=== PATIENT | female | born 1945 | race Caucasian/White ===

== ENCOUNTER 2018-03-19 09:00 | Outpatient (RCR) | payer MEDICARE, OTHER, SELFPAY ==
--- NOTE | 2018-02-01 16:19 | PT.OIE ---
Current Diagnoses Other peripheral vertigo, left ear (02/01/18) Dizziness and giddiness (02/01/18) Past Medical History (Last Updated 02/01/18 @ 15:44 by Latrice Jose, PT) After cataract, bilateral (Acute) Hypothyroid (Acute) Provider Visit Care Team Role Provider Type Forrest Macdonald MD Family Provider Physician Primary Care Provider Specialty: Family Practice Address: [address] [place] [address], [id number] Email: [email or web address] Bobby Payton MD Attending Provider Physician Specialty: Ear, Nose, Throat Address: [address] [place] [address], [id number] Email: Physical Therapy Initial Evaluation PT-OP-A Visit Information Start: 02/01/18 10:29 Freq: Status: Active Protocol: Document 02/01/18 10:30 AMB (Rec: 02/01/18 14:31 AMB [email or web address]) Out-Patient Physical Therapy Visit Information Visit Information Visit Type Initial Evaluation Visit Start Time 10:30 Visit Stop Time 11:20 Total Visit Minutes 50 Visit Number 1 Evaluation Information Evaluation Date 02/01/18 PT-OP-B Current Condition Start: 02/01/18 10:29 Freq: Status: Active Protocol: Document 02/01/18 10:30 AMB (Rec: 02/01/18 14:31 AMB [email or web address]) Current Condition History of Current Condition Onset Date December 2017 Current Complaints Dizziness History of Current Condition The patient reports she first noticed dizziness around 2016, but it went away on its own. Around it came back and has maintained. She thinks she is learning how to move without bringing on the worst of the symptoms, but they are still there if when she comes up from washing her hair in the sink, sits up in bed, or turns quickly in the kitchen. Prior Treatments and Tests MRI of brain: clear on 01/04/18 . VNG 01/25/18: L peripheral weakness. Prior Functional Status Baseline Function- ADL's Independent Baseline Function- Mobility Independent Current Functional Impairments (Reported) Functional Limitations- ADL's Limited with showering because of dizziness, bed mobility. Functional Limitations- Recreation/ Limited in gardening Hobbies Personal Factors Other Personal Factors That May Effect Pt taking amitriptyline and Therapy/Recovery concerned that it could be causing dizziness PT-OP-C Subjective Start: 02/01/18 10:29 Freq: Status: Active Protocol: Document 02/01/18 10:30 AMB (Rec: 02/01/18 14:31 AMB [email or web address]) OP-PT Subjective Patient Comments Patient Comments Pt states the dizziness is present constantly. When sitting currently without moving she rates it at a 2-3/ 10. It is worse with positional changes and head movements. Patient Questionnaires ABC- Activity Specific Balance Confidence Scale ABC Score 47 ABC Functional Impairment 40 to <60% Impaired (Score 41- 60) Dizziness Handicap Inventory DHI Score 34 DHI Functional Impairment 20 to 39% Impaired (Score 20- 39) PT-OP-D Balance Start: 02/01/18 10:29 Freq: Status: Active Protocol: Document 02/01/18 10:30 AMB (Rec: 02/01/18 16:15 AMB [email or web address]) Balance Tests Single Limb Standing Single Limb- Right 10 sec Single Limb- Left 5 sec Semi-Tandem Standing Semi-Tandem Standing Balance EO WFL, EC falls; HT falls PT-OP-G Mobility & Gait Start: 02/01/18 10:29 Freq: Status: Active Protocol: Document 02/01/18 10:30 AMB (Rec: 02/01/18 16:19 AMB [email or web address]) OP Gait Assessment Gait Gait Assistance Required: Independent Comments Gait Comments Pt ambulates without assistive device but admits that she furniture walks occassionally. PT-OP-O Vestibular Start: 02/01/18 10:29 Freq: Status: Active Protocol: Document 02/01/18 10:30 AMB (Rec: 02/01/18 16:09 AMB [email or web address]) Vestibular Assessment Visual Testing Smooth Pursuits Horizontal WFL Saccades Horizontal WFL Thrust Head sx increas Convergence Test 6 DVA (Line Degradation) 3 Head Shake sx increas Spontaneous Nystagmus Negative Vestibulo-Ocular Reflex (VOR1) Positive Positional Testing Hammad-Hallpike Negative Left Negative Right Rolling Test Negative Left Negative Right Comments Vestibular Comments Pt without nystagmus but had subjective feeling of dropping/rolling after sitting up from Hammad-Hallpike. PT-OP-Q Treatments Start: 02/01/18 10:29 Freq: Status: Active Protocol: Document 02/01/18 10:30 AMB (Rec: 02/01/18 16:18 AMB [email or web address]) Neuro Re-Education Treatment Balance Activities 1 Details Corner balance Comments EO.EC Other Activities 1 Details VOR1 Comments WBOS PT-OP-T Assessment and Plan Start: 02/01/18 10:29 Freq: Status: Active Protocol: Document 02/01/18 10:30 AMB (Rec: 02/01/18 16:02 AMB [email or web address]) Physical Therapy Assessment Rehab Potential Rehabilitation Potential Good Evaluation Complexity Number of Personal Factors/Comorbidities 1-2 Number of Body Systems Impaired 3 Clinical Presentation at Evaluation Stable Impairments Impairments Activity Tolerance Balance Vestibular Goals 2 Impairment Balance Short Term Goal (STG) The patient will stand on one foot for 15 seconds with eyes open to show decreased fall risk. STG Duration 4 weeks Skilled Nursing Goal (LTG) The patient will stand with NBOS and perform head turns without LOB. LTG Duration 8 weeks 1 Impairment Positional changes Short Term Goal (STG) The patient will move from supine to sit without dizziness. STG Duration 4 weeks Manager Study Goal (LTG) The patient will stand up from washing her hair in the sink without dizziness. LTG Duration 8 weeks Assessment Summary Assessment The patient presents with recent onset dizziness with negative MRI and VNG positive for L sided weakness. No nystagmus with positional testing, but dizziness when coming up from positions. Poor static balance especially with eyes closed or head turns. She will benefit from PT for vestibular rehabilitation to reduce her baseline dizziness and improve her movement tolerance. Physical Therapy Plan Frequency and Duration Frequency of Treatment 1x/Week Duration of Treatment 8 weeks Plan of Care Start Date 02/01/18 Plan of Care End Date 03/29/18 Therapeutic Interventions Therapeutic Interventions Balance Training Gait Training Home Exercise Program Neuromuscular Re-education Self-Care/Home Management Therapeutic Activities Therapeutic Exercises Vestibular Rehabilitation Provider Signature Date
--- NOTE | 2018-02-01 16:20 | PT.OPPOC ---
Current Diagnoses Other peripheral vertigo, left ear (02/01/18) Dizziness and giddiness (02/01/18) Provider Visit Care Team Role Provider Type Forrest Macdonald MD Family Provider Physician Primary Care Provider Specialty: Family Practice Address: [address] [place] [address], [id number] Email: [email or web address] Bobby Payton MD Attending Provider Physician Specialty: Ear, Nose, Throat Address: [address] [place] [address], [id number] Email: Plan Of Care PT-OP-T Assessment and Plan Start: 02/01/18 10:29 Freq: Status: Active Protocol: Document 02/01/18 10:30 AMB (Rec: 02/01/18 16:02 AMB [email or web address]) Physical Therapy Assessment Rehab Potential Rehabilitation Potential Good Evaluation Complexity Number of Personal Factors/Comorbidities 1-2 Number of Body Systems Impaired 3 Clinical Presentation at Evaluation Stable Impairments Impairments Activity Tolerance Balance Vestibular Goals 2 Impairment Balance Short Term Goal (STG) The patient will stand on one foot for 15 seconds with eyes open to show decreased fall risk. STG Duration 4 weeks Fpc Goal (LTG) The patient will stand with NBOS and perform head turns without LOB. LTG Duration 8 weeks 1 Impairment Positional changes Short Term Goal (STG) The patient will move from supine to sit without dizziness. STG Duration 4 weeks Valve Inserter Goal (LTG) The patient will stand up from washing her hair in the sink without dizziness. LTG Duration 8 weeks Assessment Summary Assessment The patient presents with recent onset dizziness with negative MRI and VNG positive for L sided weakness. No nystagmus with positional testing, but dizziness when coming up from positions. Poor static balance especially with eyes closed or head turns. She will benefit from PT for vestibular rehabilitation to reduce her baseline dizziness and improve her movement tolerance. Physical Therapy Plan Frequency and Duration Frequency of Treatment 1x/Week Duration of Treatment 8 weeks Plan of Care Start Date 02/01/18 Plan of Care End Date 03/29/18 Therapeutic Interventions Therapeutic Interventions Balance Training Gait Training Home Exercise Program Neuromuscular Re-education Self-Care/Home Management Therapeutic Activities Therapeutic Exercises Vestibular Rehabilitation Plan of Care Dates Plan of Care Start Date 02/01/18 Plan of Care End Date 03/29/18 Please Sign and Return: I have reviewed this Plan of Care and certify that the skilled therapy services above are required to meet the patient???s needs. Physician Signature Date Printed Name and Credentials
--- NOTE | 2018-02-05 09:27 | PT.OTN ---
Current Diagnoses Other peripheral vertigo, left ear (02/04/18) Dizziness and giddiness (02/04/18) Physical Therapy Treatment Note PT-OP-A Visit Information Start: 02/01/18 10:29 Freq: Status: Active Protocol: Document 02/04/18 13:00 AMB (Rec: 02/04/18 13:01 AMB [email or web address]) Out-Patient Physical Therapy Visit Information Visit Information Visit Type Treatment Note Visit Start Time 10:30 Visit Stop Time 11:15 Total Visit Minutes 45 Visit Number 2 Evaluation Information Evaluation Date 02/01/18 PT-OP-B Current Condition Start: 02/01/18 10:29 Freq: Status: Active Protocol: Document 02/01/18 10:30 AMB (Rec: 02/01/18 14:31 AMB [email or web address]) Current Condition History of Current Condition Onset Date December 2017 Current Complaints Dizziness History of Current Condition The patient reports she first noticed dizziness around 2016, but it went away on its own. Around it came back and has maintained. She thinks she is learning how to move without bringing on the worst of the symptoms, but they are still there if when she comes up from washing her hair in the sink, sits up in bed, or turns quickly in the kitchen. Prior Treatments and Tests MRI of brain: clear on 01/04/18 . VNG 01/25/18: L peripheral weakness. Prior Functional Status Baseline Function- ADL's Independent Baseline Function- Mobility Independent Current Functional Impairments (Reported) Functional Limitations- ADL's Limited with showering because of dizziness, bed mobility. Functional Limitations- Recreation/ Limited in gardening Hobbies Personal Factors Other Personal Factors That May Effect Pt taking amitriptyline and Therapy/Recovery concerned that it could be causing dizziness PT-OP-C Subjective Start: 02/01/18 10:29 Freq: Status: Active Protocol: Document 02/04/18 10:30 AMB (Rec: 02/05/18 07:30 AMB [email or web address]) OP-PT Subjective Patient Comments Patient Comments The patient states she has been doing her exercises 1x/ day, it was making her quite dizzy. Doing them at 9pm, and then dizzy until she went to bed at 10pm. PT-OP-D Balance Start: 02/01/18 10:29 Freq: Status: Active Protocol: Document 02/01/18 10:30 AMB (Rec: 02/01/18 16:15 AMB [email or web address]) Balance Tests Single Limb Standing Single Limb- Right 10 sec Single Limb- Left 5 sec Semi-Tandem Standing Semi-Tandem Standing Balance EO WFL, EC falls; HT falls PT-OP-G Mobility & Gait Start: 02/01/18 10:29 Freq: Status: Active Protocol: Document 02/01/18 10:30 AMB (Rec: 02/01/18 16:19 AMB [email or web address]) OP Gait Assessment Gait Gait Assistance Required: Independent Comments Gait Comments Pt ambulates without assistive device but admits that she furniture walks occasionally. PT-OP-O Vestibular Start: 02/01/18 10:29 Freq: Status: Active Protocol: Document 02/01/18 10:30 AMB (Rec: 02/01/18 16:09 AMB [email or web address]) Vestibular Assessment Visual Testing Smooth Pursuits Horizontal WFL Saccades Horizontal WFL Thrust Head sx increas Convergence Test 6 DVA (Line Degradation) 3 Head Shake sx increas Spontaneous Nystagmus Negative Vestibulo-Ocular Reflex (VOR1) Positive Positional Testing Laurel-Hallpike Negative Left Negative Right Rolling Test Negative Left Negative Right Comments Vestibular Comments Pt without nystagmus but had subjective feeling of dropping/rolling after sitting up from Laurel-Hallpike. PT-OP-Q Treatments Start: 02/01/18 10:29 Freq: Status: Active Protocol: Document 02/04/18 10:30 AMB (Rec: 02/05/18 09:26 AMB [email or web address]) Neuro Re-Education Treatment Balance Activities 2 Details Foam balance Surface blue foam Comments stride stance 1 Details Corner balance Comments EO.EC Movement Re-Education Movement Re-education Activities Ayers-Daroff x 2 (wait until dizziness subsides before coming back up to retrain brain) Other Activities 1 Details VOR1 Comments WBOS, added challenging background PT-OP-T Assessment and Plan Start: 02/01/18 10:29 Freq: Status: Active Protocol: Document 02/04/18 10:30 AMB (Rec: 02/05/18 09:26 AMB [email or web address]) Physical Therapy Assessment Assessment Summary Assessment Encouraged pt to try exercises 2x/day, but less intensity so that she isn't dizzy for an hour after her exercises. Physical Therapy Plan Frequency and Duration Frequency of Treatment 1x/Week Duration of Treatment 8 weeks Plan of Care Start Date 02/01/18 Plan of Care End Date 03/29/18 Next Visit Focus/Plan Next Visit Plan Follow up on tolerance to exercises. Walking with head turns. Please Sign and Return: I have reviewed this Plan of Care and certify that the skilled therapy services above are required to meet the patient???s needs. Physician Signature Date Printed Name and Credentials Clinical Instructor Signature Printed Name and Credentials
--- NOTE | 2018-02-13 10:52 | PT.OTN ---
Current Diagnoses Other peripheral vertigo, left ear (02/13/18) Dizziness and giddiness (02/13/18) Physical Therapy Treatment Note PT-OP-A Visit Information Start: 02/01/18 10:29 Freq: Status: Active Protocol: Document 02/13/18 08:45 AMB (Rec: 02/13/18 10:33 AMB [email or web address]) Out-Patient Physical Therapy Visit Information Visit Information Visit Type Treatment Note Visit Start Time 08:50 Visit Stop Time 09:30 Total Visit Minutes 45 Visit Number 3 Evaluation Information Evaluation Date 02/01/18 PT-OP-B Current Condition Start: 02/01/18 10:29 Freq: Status: Active Protocol: Document 02/01/18 10:30 AMB (Rec: 02/01/18 14:31 AMB [email or web address]) Current Condition History of Current Condition Onset Date December 2017 Current Complaints Dizziness History of Current Condition The patient reports she first noticed dizziness around 2016, but it went away on its own. Around it came back and has maintained. She thinks she is learning how to move without bringing on the worst of the symptoms, but they are still there if when she comes up from washing her hair in the sink, sits up in bed, or turns quickly in the kitchen. Prior Treatments and Tests MRI of brain: clear on 01/04/18 . VNG 01/25/18: L peripheral weakness. Prior Functional Status Baseline Function- ADL's Independent Baseline Function- Mobility Independent Current Functional Impairments (Reported) Functional Limitations- ADL's Limited with showering because of dizziness, bed mobility. Functional Limitations- Recreation/ Limited in gardening Hobbies Personal Factors Other Personal Factors That May Effect Pt taking amitriptyline and Therapy/Recovery concerned that it could be causing dizziness PT-OP-C Subjective Start: 02/01/18 10:29 Freq: Status: Active Protocol: Document 02/04/18 10:30 AMB (Rec: 02/05/18 07:30 AMB [email or web address]) OP-PT Subjective Patient Comments Patient Comments The patient states she has been doing her exercises 1x/ day, it was making her quite dizzy. Doing them at 9pm, and then dizzy until she went to bed at 10pm. PT-OP-D Balance Start: 02/01/18 10:29 Freq: Status: Active Protocol: Document 02/01/18 10:30 AMB (Rec: 02/01/18 16:15 AMB [email or web address]) Balance Tests Single Limb Standing Single Limb- Right 10 sec Single Limb- Left 5 sec Semi-Tandem Standing Semi-Tandem Standing Balance EO WFL, EC falls; HT falls PT-OP-G Mobility & Gait Start: 02/01/18 10:29 Freq: Status: Active Protocol: Document 02/01/18 10:30 AMB (Rec: 02/01/18 16:19 AMB [email or web address]) OP Gait Assessment Gait Gait Assistance Required: Independent Comments Gait Comments Pt ambulates without assistive device but admits that she furniture walks occassionally. PT-OP-O Vestibular Start: 02/01/18 10:29 Freq: Status: Active Protocol: Document 02/01/18 10:30 AMB (Rec: 02/01/18 16:09 AMB [email or web address]) Vestibular Assessment Visual Testing Smooth Pursuits Horizontal WFL Saccades Horizontal WFL Thrust Head sx increas Convergence Test 6 DVA (Line Degradation) 3 Head Shake sx increas Spontaneous Nystagmus Negative Vestibulo-Ocular Reflex (VOR1) Positive Positional Testing Hammad-Hallpike Negative Left Negative Right Rolling Test Negative Left Negative Right Comments Vestibular Comments Pt without nystagmus but had subjective feeling of dropping/rolling after sitting up from Purdin-Hallpike. PT-OP-Q Treatments Start: 02/01/18 10:29 Freq: Status: Active Protocol: Document 02/13/18 08:45 AMB (Rec: 02/13/18 10:46 AMB [id number]) Neuro Re-Education Treatment Balance Activities 4 Details Single leg stance Reps/Duration 5 sec 3 Details Forward bow Reps/Duration 5 2 Details Foam balance Surface agosto foam Comments VOR 1 1 Details Corner balance Comments EO.EC Other Activities 2 Details Walking with head turns Comments vertical and horizontal 1 Details VOR1 Comments WBOS, added challenging background PT-OP-T Assessment and Plan Start: 02/01/18 10:29 Freq: Status: Active Protocol: Document 02/13/18 08:45 AMB (Rec: 02/13/18 10:52 AMB [id number]) Physical Therapy Assessment Goals 2 Impairment Balance Short Term Goal (STG) The patient will stand on one foot for 15 seconds with eyes open to show decreased fall risk. STG Duration 4 weeks Labor Economist Goal (LTG) The patient will stand with NBOS and perform head turns without LOB. LTG Duration 8 weeks 1 Impairment Positional changes Short Term Goal (STG) The patient will move from supine to sit without dizziness. STG Duration 4 weeks Retirement Goal (LTG) The patient will stand up from washing her hair in the sink without dizziness. LTG Duration 8 weeks Assessment Summary Assessment Encouraged pt to try to space exercises out throughout the day for better tolerance. Physical Therapy Plan Frequency and Duration Frequency of Treatment 1x/Week Duration of Treatment 8 weeks Plan of Care Start Date 02/01/18 Plan of Care End Date 03/29/18 Next Visit Focus/Plan Next Note Type Treatment Note Next Visit Plan Progress as tolerated, VOR 2 Please Sign and Return: I have reviewed this Plan of Care and certify that the skilled therapy services above are required to meet the patient???s needs. Physician Signature Date Printed Name and Credentials Clinical Instructor Signature Printed Name and Credentials
--- NOTE | 2018-02-21 07:08 | PT.OTN ---
Current Diagnoses Other peripheral vertigo, left ear (02/20/18) Dizziness and giddiness (02/20/18) Physical Therapy Treatment Note PT-OP-A Visit Information Start: 02/01/18 10:29 Freq: Status: Active Protocol: Document 02/20/18 10:30 AMB (Rec: 02/20/18 10:52 AMB [id number]) Out-Patient Physical Therapy Visit Information Visit Information Visit Type Treatment Note Visit Start Time 10:30 Visit Stop Time 11:15 Total Visit Minutes 45 Visit Number 4 Evaluation Information Evaluation Date 02/01/18 PT-OP-B Current Condition Start: 02/01/18 10:29 Freq: Status: Active Protocol: Document 02/01/18 10:30 AMB (Rec: 02/01/18 14:31 AMB [email or web address]) Current Condition History of Current Condition Onset Date December 2017 Current Complaints Dizziness History of Current Condition The patient reports she first noticed dizziness around 2016, but it went away on its own. Around it came back and has maintained. She thinks she is learning how to move without bringing on the worst of the symptoms, but they are still there if when she comes up from washing her hair in the sink, sits up in bed, or turns quickly in the kitchen. Prior Treatments and Tests MRI of brain: clear on 01/04/18 . VNG 01/25/18: L peripheral weakness. Prior Functional Status Baseline Function- ADL's Independent Baseline Function- Mobility Independent Current Functional Impairments (Reported) Functional Limitations- ADL's Limited with showering because of dizziness, bed mobility. Functional Limitations- Recreation/ Limited in gardening Hobbies Personal Factors Other Personal Factors That May Effect Pt taking amitriptyline and Therapy/Recovery concerned that it could be causing dizziness PT-OP-C Subjective Start: 02/01/18 10:29 Freq: Status: Active Protocol: Document 02/20/18 10:30 AMB (Rec: 02/20/18 11:00 AMB [id number]) OP-PT Subjective Patient Comments Patient Comments The patient states that she was very dizzy after the last treatment. PT-OP-D Balance Start: 02/01/18 10:29 Freq: Status: Active Protocol: Document 02/01/18 10:30 AMB (Rec: 02/01/18 16:15 AMB [email or web address]) Balance Tests Single Limb Standing Single Limb- Right 10 sec Single Limb- Left 5 sec Semi-Tandem Standing Semi-Tandem Standing Balance EO WFL, EC falls; HT falls PT-OP-G Mobility & Gait Start: 02/01/18 10:29 Freq: Status: Active Protocol: Document 02/01/18 10:30 AMB (Rec: 02/01/18 16:19 AMB [email or web address]) OP Gait Assessment Gait Gait Assistance Required: Independent Comments Gait Comments Pt ambulates without assistive device but admits that she furniture walks occassionally. PT-OP-O Vestibular Start: 02/01/18 10:29 Freq: Status: Active Protocol: Document 02/01/18 10:30 AMB (Rec: 02/01/18 16:09 AMB [email or web address]) Vestibular Assessment Visual Testing Smooth Pursuits Horizontal WFL Saccades Horizontal WFL Thrust Head sx increas Convergence Test 6 DVA (Line Degradation) 3 Head Shake sx increas Spontaneous Nystagmus Negative Vestibulo-Ocular Reflex (VOR1) Positive Positional Testing Hammad-Hallpike Negative Left Negative Right Rolling Test Negative Left Negative Right Comments Vestibular Comments Pt without nystagmus but had subjective feeling of dropping/rolling after sitting up from Hammad-Hallpike. PT-OP-Q Treatments Start: 02/01/18 10:29 Freq: Status: Active Protocol: Document 02/20/18 10:30 AMB (Rec: 02/21/18 07:07 AMB [email or web address]) Neuro Re-Education Treatment Balance Activities 4 Details Single leg stance Reps/Duration 5 sec 2 Details Foam balance Surface agosto foam Comments VOR 1 1 Details Corner balance Comments EO.EC Other Activities 1 Details VOR1 Comments seated, plain background PT-OP-T Assessment and Plan Start: 02/01/18 10:29 Freq: Status: Active Protocol: Document 02/20/18 10:30 AMB (Rec: 02/21/18 07:07 AMB [email or web address]) Physical Therapy Assessment Assessment Summary Assessment Pt felt very dizzy after last visit which lasted the rest of the day. Has had some moments of not feeling too bad , but overall did not tolerate as much today, so cut treatment to 30 minutes for patient tolerance. Physical Therapy Plan Frequency and Duration Frequency of Treatment 1x/Week Duration of Treatment 8 weeks Plan of Care Start Date 02/01/18 Plan of Care End Date 03/29/18 Next Visit Focus/Plan Next Note Type Treatment Note Next Visit Plan Follow up on pt tolerance Please Sign and Return: I have reviewed this Plan of Care and certify that the skilled therapy services above are required to meet the patient?s needs. Physician Signature Date Printed Name and Credentials Clinical Instructor Signature Printed Name and Credentials
--- NOTE | 2018-02-27 12:52 | PT.OTN ---
Current Diagnoses Other peripheral vertigo, left ear (02/27/18) Dizziness and giddiness (02/27/18) Physical Therapy Treatment Note PT-OP-A Visit Information Start: 02/01/18 10:29 Freq: Status: Active Protocol: Document 02/27/18 09:45 AMB (Rec: 02/27/18 12:51 AMB [email or web address]) Out-Patient Physical Therapy Visit Information Visit Information Visit Type Treatment Note Visit Start Time 09:45 Visit Stop Time 10:30 Total Visit Minutes 45 Visit Number 5 Evaluation Information Evaluation Date 02/01/18 PT-OP-B Current Condition Start: 02/01/18 10:29 Freq: Status: Active Protocol: Document 02/01/18 10:30 AMB (Rec: 02/01/18 14:31 AMB [email or web address]) Current Condition History of Current Condition Onset Date December 2017 Current Complaints Dizziness History of Current Condition The patient reports she first noticed dizziness around 2016, but it went away on its own. Around it came back and has maintained. She thinks she is learning how to move without bringing on the worst of the symptoms, but they are still there if when she comes up from washing her hair in the sink, sits up in bed, or turns quickly in the kitchen. Prior Treatments and Tests MRI of brain: clear on 01/04/18 . VNG 01/25/18: L peripheral weakness. Prior Functional Status Baseline Function- ADL's Independent Baseline Function- Mobility Independent Current Functional Impairments (Reported) Functional Limitations- ADL's Limited with showering because of dizziness, bed mobility. Functional Limitations- Recreation/ Limited in gardening Hobbies Personal Factors Other Personal Factors That May Effect Pt taking amitriptyline and Therapy/Recovery concerned that it could be causing dizziness PT-OP-C Subjective Start: 02/01/18 10:29 Freq: Status: Active Protocol: Document 02/27/18 09:45 AMB (Rec: 02/27/18 12:51 AMB [email or web address]) OP-PT Subjective Patient Comments Patient Comments The patient states she was better after last treatment ( still had sx but not as bad). Pt has noticed overall better days, still diazzy but less so. PT-OP-D Balance Start: 02/01/18 10:29 Freq: Status: Active Protocol: Document 02/01/18 10:30 AMB (Rec: 02/01/18 16:15 AMB [email or web address]) Balance Tests Single Limb Standing Single Limb- Right 10 sec Single Limb- Left 5 sec Semi-Tandem Standing Semi-Tandem Standing Balance EO WFL, EC falls; HT falls PT-OP-G Mobility & Gait Start: 02/01/18 10:29 Freq: Status: Active Protocol: Document 02/01/18 10:30 AMB (Rec: 02/01/18 16:19 AMB [email or web address]) OP Gait Assessment Gait Gait Assistance Required: Independent Comments Gait Comments Pt ambulates without assistive device but admits that she furniture walks occassionally. PT-OP-O Vestibular Start: 02/01/18 10:29 Freq: Status: Active Protocol: Document 02/01/18 10:30 AMB (Rec: 02/01/18 16:09 AMB [email or web address]) Vestibular Assessment Visual Testing Smooth Pursuits Horizontal WFL Saccades Horizontal WFL Thrust Head sx increas Convergence Test 6 DVA (Line Degradation) 3 Head Shake sx increas Spontaneous Nystagmus Negative Vestibulo-Ocular Reflex (VOR1) Positive Positional Testing Cyrus-Hallpike Negative Left Negative Right Rolling Test Negative Left Negative Right Comments Vestibular Comments Pt without nystagmus but had subjective feeling of dropping/rolling after sitting up from Hammad-Hallpike. PT-OP-Q Treatments Start: 02/01/18 10:29 Freq: Status: Active Protocol: Document 02/27/18 09:45 AMB (Rec: 02/27/18 12:51 AMB [email or web address]) Neuro Re-Education Treatment Balance Activities 3 Details Forward bow Reps/Duration 5 2 Details Foam balance Surface agosto foam Comments VOR 1 1 Details Corner balance Comments EO.EC Other Activities 2 Details Walking with head turns Comments vertical and horizontal PT-OP-T Assessment and Plan Start: 02/01/18 10:29 Freq: Status: Active Protocol: Document 02/27/18 09:45 AMB (Rec: 02/27/18 12:51 AMB [email or web address]) Physical Therapy Assessment Goals 2 Impairment Balance Short Term Goal (STG) The patient will stand on one foot for 15 seconds with eyes open to show decreased fall risk. STG Duration 4 weeks Custodial Goal (LTG) The patient will stand with NBOS and perform head turns without LOB. LTG Duration 8 weeks 1 Impairment Positional changes Short Term Goal (STG) The patient will move from supine to sit without dizziness. STG Duration 4 weeks Blind Teacher Goal (LTG) The patient will stand up from washing her hair in the sink without dizziness. LTG Duration 8 weeks Assessment Summary Assessment Pt tolerated appt better today than last week, still careful to give rest breaks between activities. Physical Therapy Plan Frequency and Duration Frequency of Treatment 1x/Week Duration of Treatment 8 weeks Plan of Care Start Date 02/01/18 Plan of Care End Date 03/29/18 Next Visit Focus/Plan Next Note Type Treatment Note Next Visit Plan Progress as tolerated Please Sign and Return: I have reviewed this Plan of Care and certify that the skilled therapy services above are required to meet the patient?s needs. Physician Signature Date Printed Name and Credentials Clinical Instructor Signature Printed Name and Credentials
--- NOTE | 2018-03-06 11:55 | PT.OTN ---
Current Diagnoses Other peripheral vertigo, left ear (03/06/18) Dizziness and giddiness (03/06/18) Physical Therapy Treatment Note PT-OP-A Visit Information Start: 02/01/18 10:29 Freq: Status: Active Protocol: Document 03/06/18 09:45 AMB (Rec: 03/06/18 10:27 AMB [id number]) Out-Patient Physical Therapy Visit Information Visit Information Visit Type Treatment Note Visit Start Time 09:45 Visit Stop Time 10:30 Total Visit Minutes 45 Visit Number 6 Evaluation Information Evaluation Date 02/01/18 PT-OP-B Current Condition Start: 02/01/18 10:29 Freq: Status: Active Protocol: Document 02/01/18 10:30 AMB (Rec: 02/01/18 14:31 AMB [email or web address]) Current Condition History of Current Condition Onset Date December 2017 Current Complaints Dizziness History of Current Condition The patient reports she first noticed dizziness around 2016, but it went away on its own. Around it came back and has maintained. She thinks she is learning how to move without bringing on the worst of the symptoms, but they are still there if when she comes up from washing her hair in the sink, sits up in bed, or turns quickly in the kitchen. Prior Treatments and Tests MRI of brain: clear on 01/04/18 . VNG 01/25/18: L peripheral weakness. Prior Functional Status Baseline Function- ADL's Independent Baseline Function- Mobility Independent Current Functional Impairments (Reported) Functional Limitations- ADL's Limited with showering because of dizziness, bed mobility. Functional Limitations- Recreation/ Limited in gardening Hobbies Personal Factors Other Personal Factors That May Effect Pt taking amitriptyline and Therapy/Recovery concerned that it could be causing dizziness PT-OP-C Subjective Start: 02/01/18 10:29 Freq: Status: Active Protocol: Document 03/06/18 09:45 AMB (Rec: 03/06/18 10:27 AMB [id number]) OP-PT Subjective Patient Comments Patient Comments The patient reports she had a good few days, but then yesterday symptoms worsened and this morning she is dizzy (did not wake up dizzy, it just came on). PT-OP-D Balance Start: 02/01/18 10:29 Freq: Status: Active Protocol: Document 02/01/18 10:30 AMB (Rec: 02/01/18 16:15 AMB [email or web address]) Balance Tests Single Limb Standing Single Limb- Right 10 sec Single Limb- Left 5 sec Semi-Tandem Standing Semi-Tandem Standing Balance EO WFL, EC falls; HT falls PT-OP-G Mobility & Gait Start: 02/01/18 10:29 Freq: Status: Active Protocol: Document 02/01/18 10:30 AMB (Rec: 02/01/18 16:19 AMB [email or web address]) OP Gait Assessment Gait Gait Assistance Required: Independent Comments Gait Comments Pt ambulates without assistive device but admits that she furniture walks occassionally. PT-OP-O Vestibular Start: 02/01/18 10:29 Freq: Status: Active Protocol: Document 02/01/18 10:30 AMB (Rec: 02/01/18 16:09 AMB [email or web address]) Vestibular Assessment Visual Testing Smooth Pursuits Horizontal WFL Saccades Horizontal WFL Thrust Head sx increas Convergence Test 6 DVA (Line Degradation) 3 Head Shake sx increas Spontaneous Nystagmus Negative Vestibulo-Ocular Reflex (VOR1) Positive Positional Testing Hammad-Hallpike Negative Left Negative Right Rolling Test Negative Left Negative Right Comments Vestibular Comments Pt without nystagmus but had subjective feeling of dropping/rolling after sitting up from [place]-Hallpike. PT-OP-Q Treatments Start: 02/01/18 10:29 Freq: Status: Active Protocol: Document 03/06/18 09:45 AMB (Rec: 03/06/18 11:54 AMB [email or web address]) Neuro Re-Education Treatment Balance Activities 3 Details Forward bow Reps/Duration 5 Comments added HT 2 Details Foam balance Surface blue foam Comments HT Vestibular Rehabilitation Other- 1 Details Suleiman string Comments to work on convergence training Other Activities 2 Details Walking with head turns Comments vertical and horizontal 1 Details VOR1 Comments standing, plaid background PT-OP-T Assessment and Plan Start: 02/01/18 10:29 Freq: Status: Active Protocol: Document 03/06/18 09:45 AMB (Rec: 03/06/18 11:54 AMB [email or web address]) Physical Therapy Assessment Assessment Summary Assessment Pt with dizziness sx throughout treatment, but notes that last week, she was not entirely dizzy the entire day. Physical Therapy Plan Frequency and Duration Frequency of Treatment 1x/Week Duration of Treatment 8 weeks Plan of Care Start Date 02/01/18 Plan of Care End Date 03/29/18 Next Visit Focus/Plan Next Note Type Treatment Note Next Visit Plan Progress speed of HT
--- NOTE | 2018-03-13 16:44 | PT.OTN ---
Current Diagnoses Other peripheral vertigo, left ear (03/13/18) Dizziness and giddiness (03/13/18) Physical Therapy Treatment Note PT-OP-A Visit Information Start: 02/01/18 10:29 Freq: Status: Active Protocol: Document 03/13/18 09:45 AMB (Rec: 03/13/18 09:52 AMB [id number]) Out-Patient Physical Therapy Visit Information Visit Information Visit Type Treatment Note Visit Start Time 09:45 Visit Stop Time 10:30 Total Visit Minutes 45 Visit Number 7 Evaluation Information Evaluation Date 02/01/18 PT-OP-B Current Condition Start: 02/01/18 10:29 Freq: Status: Active Protocol: Document 02/01/18 10:30 AMB (Rec: 02/01/18 14:31 AMB [email or web address]) Current Condition History of Current Condition Onset Date December 2017 Current Complaints Dizziness History of Current Condition The patient reports she first noticed dizziness around 2016, but it went away on its own. Around it came back and has maintained. She thinks she is learning how to move without bringing on the worst of the symptoms, but they are still there if when she comes up from washing her hair in the sink, sits up in bed, or turns quickly in the kitchen. Prior Treatments and Tests MRI of brain: clear on 01/04/18 . VNG 01/25/18: L peripheral weakness. Prior Functional Status Baseline Function- ADL's Independent Baseline Function- Mobility Independent Current Functional Impairments (Reported) Functional Limitations- ADL's Limited with showering because of dizziness, bed mobility. Functional Limitations- Recreation/ Limited in gardening Hobbies Personal Factors Other Personal Factors That May Effect Pt taking amitriptyline and Therapy/Recovery concerned that it could be causing dizziness PT-OP-C Subjective Start: 02/01/18 10:29 Freq: Status: Active Protocol: Document 03/13/18 09:45 AMB (Rec: 03/13/18 10:01 AMB [id number]) OP-PT Subjective Patient Comments Patient Reported Progress Improving PT-OP-D Balance Start: 02/01/18 10:29 Freq: Status: Active Protocol: Document 02/01/18 10:30 AMB (Rec: 02/01/18 16:15 AMB [email or web address]) Balance Tests Single Limb Standing Single Limb- Right 10 sec Single Limb- Left 5 sec Semi-Tandem Standing Semi-Tandem Standing Balance EO WFL, EC falls; HT falls PT-OP-G Mobility & Gait Start: 02/01/18 10:29 Freq: Status: Active Protocol: Document 02/01/18 10:30 AMB (Rec: 02/01/18 16:19 AMB [email or web address]) OP Gait Assessment Gait Gait Assistance Required: Independent Comments Gait Comments Pt ambulates without assistive device but admits that she furniture walks occassionally. PT-OP-O Vestibular Start: 02/01/18 10:29 Freq: Status: Active Protocol: Document 02/01/18 10:30 AMB (Rec: 02/01/18 16:09 AMB [email or web address]) Vestibular Assessment Visual Testing Smooth Pursuits Horizontal WFL Saccades Horizontal WFL Thrust Head sx increas Convergence Test 6 DVA (Line Degradation) 3 Head Shake sx increas Spontaneous Nystagmus Negative Vestibulo-Ocular Reflex (VOR1) Positive Positional Testing [place]-Hallpike Negative Left Negative Right Rolling Test Negative Left Negative Right Comments Vestibular Comments Pt without nystagmus but had subjective feeling of dropping/rolling after sitting up from [place]-Hallpike. PT-OP-Q Treatments Start: 02/01/18 10:29 Freq: Status: Active Protocol: Document 03/13/18 10:15 AMB (Rec: 03/13/18 16:43 AMB [email or web address]) Neuro Re-Education Treatment Balance Activities 2 Details Foam balance Surface blue foam Comments HT Other Activities 2 Details Walking with head turns Comments diagonal, vertical and horizontal 1 Details VOR2 Comments standing, plaid background PT-OP-T Assessment and Plan Start: 02/01/18 10:29 Freq: Status: Active Protocol: Document 03/13/18 10:15 AMB (Rec: 03/13/18 16:43 AMB [email or web address]) Physical Therapy Assessment Assessment Summary Assessment Pt doing well, continues to be dizzy with exercises, but improving with every day activities, continues to need rest breaks between exercises, but tolerating longer bouts. Physical Therapy Plan Frequency and Duration Frequency of Treatment 1x/Week Duration of Treatment 8 weeks Plan of Care Start Date 02/01/18 Plan of Care End Date 03/29/18 Next Visit Focus/Plan Next Note Type Treatment Note Next Visit Plan Progress as tolerated
--- NOTE | 2018-03-19 16:28 | PT.OTN ---
Current Diagnoses Other peripheral vertigo, left ear (03/19/18) Dizziness and giddiness (03/19/18) Physical Therapy Treatment Note PT-OP-A Visit Information Start: 02/01/18 10:29 Freq: Status: Active Protocol: Document 03/19/18 09:00 AMB (Rec: 03/19/18 09:20 AMB [id number]) Out-Patient Physical Therapy Visit Information Visit Information Visit Type Treatment Note Visit Start Time 09:45 Visit Stop Time 10:30 Total Visit Minutes 45 Visit Number 8 Evaluation Information Evaluation Date 02/01/18 PT-OP-B Current Condition Start: 02/01/18 10:29 Freq: Status: Active Protocol: Document 02/01/18 10:30 AMB (Rec: 02/01/18 14:31 AMB [email or web address]) Current Condition History of Current Condition Onset Date December 2017 Current Complaints Dizziness History of Current Condition The patient reports she first noticed dizziness around 2016, but it went away on its own. Around it came back and has maintained. She thinks she is learning how to move without bringing on the worst of the symptoms, but they are still there if when she comes up from washing her hair in the sink, sits up in bed, or turns quickly in the kitchen. Prior Treatments and Tests MRI of brain: clear on 01/04/18 . VNG 01/25/18: L peripheral weakness. Prior Functional Status Baseline Function- ADL's Independent Baseline Function- Mobility Independent Current Functional Impairments (Reported) Functional Limitations- ADL's Limited with showering because of dizziness, bed mobility. Functional Limitations- Recreation/ Limited in gardening Hobbies Personal Factors Other Personal Factors That May Effect Pt taking amitriptyline and Therapy/Recovery concerned that it could be causing dizziness PT-OP-C Subjective Start: 02/01/18 10:29 Freq: Status: Active Protocol: Document 03/19/18 09:00 AMB (Rec: 03/19/18 09:20 AMB [id number]) OP-PT Subjective Patient Comments Patient Comments Gets sx when moving (walking), sometimes it is difficult to tell low blood sugar vs dizziness. PT-OP-D Balance Start: 02/01/18 10:29 Freq: Status: Active Protocol: Document 02/01/18 10:30 AMB (Rec: 02/01/18 16:15 AMB [email or web address]) Balance Tests Single Limb Standing Single Limb- Right 10 sec Single Limb- Left 5 sec Semi-Tandem Standing Semi-Tandem Standing Balance EO WFL, EC falls; HT falls PT-OP-G Mobility & Gait Start: 02/01/18 10:29 Freq: Status: Active Protocol: Document 02/01/18 10:30 AMB (Rec: 02/01/18 16:19 AMB [email or web address]) OP Gait Assessment Gait Gait Assistance Required: Independent Comments Gait Comments Pt ambulates without assistive device but admits that she furniture walks occassionally. PT-OP-O Vestibular Start: 02/01/18 10:29 Freq: Status: Active Protocol: Document 02/01/18 10:30 AMB (Rec: 02/01/18 16:09 AMB [email or web address]) Vestibular Assessment Visual Testing Smooth Pursuits Horizontal WFL Saccades Horizontal WFL Thrust Head sx increas Convergence Test 6 DVA (Line Degradation) 3 Head Shake sx increas Spontaneous Nystagmus Negative Vestibulo-Ocular Reflex (VOR1) Positive Positional Testing [place]-Hallpike Negative Left Negative Right Rolling Test Negative Left Negative Right Comments Vestibular Comments Pt without nystagmus but had subjective feeling of dropping/rolling after sitting up from Hammad-Hallpike. PT-OP-Q Treatments Start: 02/01/18 10:29 Freq: Status: Active Protocol: Document 03/19/18 09:00 AMB (Rec: 03/19/18 16:27 AMB [email or web address]) Neuro Re-Education Treatment Balance Activities 3 Details Forward bow Reps/Duration 5 Comments added HT 2 Details Foam balance Surface blue foam Comments HT 1 Details Corner balance Comments EO.EC Other Activities 2 Details Walking with head turns Comments diagonal, vertical and horizontal 1 Details VOR2 Comments standing, plaid background PT-OP-T Assessment and Plan Start: 02/01/18 10:29 Freq: Status: Active Protocol: Document 03/19/18 09:00 AMB (Rec: 03/19/18 16:27 AMB [email or web address]) Physical Therapy Assessment Assessment Summary Assessment Progressed speed of head turns today, an pt was able to tolerate reasonably well. Physical Therapy Plan Frequency and Duration Frequency of Treatment 1x/Week Duration of Treatment 8 weeks Plan of Care Start Date 02/01/18 Plan of Care End Date 07/13/18 Next Visit Focus/Plan Next Note Type Treatment Note Next Visit Plan Continue to progress speed of head turns, VOR1/2 progress.
--- NOTE | 2018-04-29 14:39 | PT.OPDS ---
Current Diagnoses Other peripheral vertigo, left ear (03/19/18) Dizziness and giddiness (03/19/18) Provider Visit Care Team Role Provider Type Forrest Macdonald MD Family Provider Physician Primary Care Provider Specialty: Family Practice Address: [address] [place] [address], [id number] Email: [email or web address] Bobby Payton MD Attending Provider Physician Specialty: Ear, Nose, Throat Address: [address] [place] [address], [id number] Email: Visit Number Visit Number 8 Discharge Summary PT-OP-B Current Condition Start: 02/01/18 10:29 Freq: Status: Active Protocol: Document 02/01/18 10:30 AMB (Rec: 02/01/18 14:31 AMB [email or web address]) Current Condition History of Current Condition Onset Date December 2017 Current Complaints Dizziness History of Current Condition The patient reports she first noticed dizziness around 2016, but it went away on its own. Around it came back and has maintained. She thinks she is learning how to move without bringing on the worst of the symptoms, but they are still there if when she comes up from washing her hair in the sink, sits up in bed, or turns quickly in the kitchen. Prior Treatments and Tests MRI of brain: clear on 01/04/18 . VNG 01/25/18: L peripheral weakness. Prior Functional Status Baseline Function- ADL's Independent Baseline Function- Mobility Independent Current Functional Impairments (Reported) Functional Limitations- ADL's Limited with showering because of dizziness, bed mobility. Functional Limitations- Recreation/ Limited in gardening Hobbies Personal Factors Other Personal Factors That May Effect Pt taking amitriptyline and Therapy/Recovery concerned that it could be causing dizziness PT-OP-C Subjective Start: 02/01/18 10:29 Freq: Status: Active Protocol: Document 03/19/18 09:00 AMB (Rec: 03/19/18 09:20 AMB [id number]) OP-PT Subjective Patient Comments Patient Comments Gets sx when moving (walking), sometimes it is difficult to tell low blood sugar vs dizziness. PT-OP-D Balance Start: 02/01/18 10:29 Freq: Status: Active Protocol: Document 02/01/18 10:30 AMB (Rec: 02/01/18 16:15 AMB [email or web address]) Balance Tests Single Limb Standing Single Limb- Right 10 sec Single Limb- Left 5 sec Semi-Tandem Standing Semi-Tandem Standing Balance EO WFL, EC falls; HT falls PT-OP-G Mobility & Gait Start: 02/01/18 10:29 Freq: Status: Active Protocol: Document 02/01/18 10:30 AMB (Rec: 02/01/18 16:19 AMB [email or web address]) OP Gait Assessment Gait Gait Assistance Required: Independent Comments Gait Comments Pt ambulates without assistive device but admits that she furniture walks occassionally. PT-OP-O Vestibular Start: 02/01/18 10:29 Freq: Status: Active Protocol: Document 02/01/18 10:30 AMB (Rec: 02/01/18 16:09 AMB [email or web address]) Vestibular Assessment Visual Testing Smooth Pursuits Horizontal WFL Saccades Horizontal WFL Thrust Head sx increas Convergence Test 6 DVA (Line Degradation) 3 Head Shake sx increas Spontaneous Nystagmus Negative Vestibulo-Ocular Reflex (VOR1) Positive Positional Testing [place]-Hallpike Negative Left Negative Right Rolling Test Negative Left Negative Right Comments Vestibular Comments Pt without nystagmus but had subjective feeling of dropping/rolling after sitting up from Hammad-Hallpike. PT-OP-T Assessment and Plan Start: 02/01/18 10:29 Freq: Status: Active Protocol: Document 04/29/18 14:35 AMB (Rec: 04/29/18 14:39 AMB [id number]) Physical Therapy Assessment Assessment Summary Assessment The patient called in to cancel her last appointment due to having family in town and feeling better. Overall she says that currently she is able to do most things without sx, occassionally she will get a rushing feelign with head turns, but otherwise she feels good and is ready to be discharged.
== END 2018-06-05 12:40 ==
LOC: PHYS 09:00
PROVIDERS: Family Provider Family Medicine; PCP Family Medicine; Visit Provider Otolaryngology Facial Plastic Surgery
DX: R42 Dizziness and giddiness (principal); H81.392 Other peripheral vertigo, left ear
CPT/HCPCS: 97112; 97161

== ENCOUNTER → 2018-04-23 10:43 | Outpatient (CLI) | payer MEDICARE, OTHER, SELFPAY ==
[2018-04-23 13:33] LABS: Thyroid Stimulating Hormone 1.04 uIU/mL (0.47-4.68)
== END ==
PROVIDERS: Family Provider Family Medicine; PCP Family Medicine; Visit Provider Internal Medicine Endocrinology, Diabetes & Metabolism
DX: E03.4 Atrophy of thyroid (acquired) (principal); E10.40 Type 1 diabetes mellitus with diabetic neuropathy, unspecified; E10.65 Type 1 diabetes mellitus with hyperglycemia
CPT/HCPCS: 36415; 83036; 84443

== ENCOUNTER → 2018-07-23 11:53 | Outpatient (CLI) | payer MEDICARE, OTHER, SELFPAY ==
[2018-07-23 12:33] LABS: Hemoglobin A1C% w Est Avg Glu 6.1 % (4.0-6.0)
[2018-07-23 12:44] LABS: BUN Creatinine Ratio 27.1 (6-22); Blood Urea Nitrogen 19 mg/dL (7-17); Calcium 10.1 mg/dL (8.4-10.2); Carbon Dioxide 29 mmol/L (22-32); Chloride 100 mmol/L (98-107); Estimated Glomerular Filt Rate > 60.0 mL/min (>60); Glucose 101 mg/dL (80-110); HEMOLYSIS 16 (0-50); Potassium 4.8 mmol/L (3.4-5.1); Sodium 141 mmol/L (137-145)
[2018-07-23 14:41] LABS: Creatinine Urine Random 59.6 mg/dL
[2018-07-23 14:46] LABS: Microalbumi Creatinin Ratio Ur 13.4 ug/mg CR (<30); Microalbumin Urine Random 0.8 mg/dL (0-1.6)
== END ==
PROVIDERS: Family Provider Family Medicine; PCP Family Medicine; Visit Provider Internal Medicine Endocrinology, Diabetes & Metabolism
DX: E10.40 Type 1 diabetes mellitus with diabetic neuropathy, unspecified (principal); E10.65 Type 1 diabetes mellitus with hyperglycemia
CPT/HCPCS: 36415; 80048; 82043; 82570; 83036

== ENCOUNTER → 2018-10-11 11:55 | Outpatient (CLI) | payer MEDICARE, OTHER, SELFPAY ==
--- NOTE | 2018-10-11 | DI.MG.S_ITS ---
BILATERAL DIGITAL SCREENING MAMMOGRAM 3D/2D WITH CAD: 10/11/2018 CLINICAL: Routine screening. Family history of breast cancer. Comparison is made to exams dated: 07/11/2017 mammogram, 07/10/2016 mammogram, and 04/19/2015 mammogram - M[facility]ed [facility]. The tissue of both breasts is extremely dense, which lowers the sensitivity of mammography. Current study was also evaluated with a Computer Aided Detection (CAD) system. There are benign post operative findings in both breasts. No significant masses, calcifications, or other findings are seen in either breast. There has been no significant interval change. IMPRESSION: There is no mammographic evidence of malignancy. A 1 year screening mammogram is recommended. This exam was interpreted at Station ID: [id number]. NOTE: For mammograms, a report in lay terms will be sent to the patient. Approximately 15% of breast malignancies will not be visualized mammographically. In the management of a palpable breast mass, a negative mammogram must not discourage biopsy of a clinically suspicious lesion. Electronically Signed By: Terri fatima/amanda:10/11/2018 12:48:33 letter sent: Normal Exam ACR BI-RADS Category 2: Benign Finding(s) [id number]
== END ==
PROVIDERS: Family Provider Family Medicine; PCP Family Medicine; Visit Provider Family Medicine
DX: Z12.31 Encounter for screening mammogram for malignant neoplasm of breast (principal); Z80.3 Family history of malignant neoplasm of breast
CPT/HCPCS: 77063; 77067

== ENCOUNTER → 2018-10-22 13:34 | Outpatient (CLI) | payer MEDICARE, OTHER, SELFPAY | PROVIDERS: Family Provider Family Medicine; PCP Family Medicine; Visit Provider Internal Medicine Endocrinology, Diabetes & Metabolism | DX: E10.9 Type 1 diabetes mellitus without complications (principal) | CPT/HCPCS: 36415; 83036 ==

== ENCOUNTER → 2019-01-20 12:43 | Outpatient (CLI) | payer MEDICARE, OTHER, SELFPAY ==
[2019-01-20 14:29] LABS: Blood Urea Nitrogen 19 mg/dL (7-17); Calcium 9.4 mg/dL (8.4-10.2); Carbon Dioxide 28 mmol/L (22-32); Chloride 97 mmol/L (98-107); Estimated Glomerular Filt Rate 54.5 mL/min (>60); Glucose 96 mg/dL (80-110); HEMOLYSIS 36 (0-50); Potassium 4.1 mmol/L (3.4-5.1); Sodium 137 mmol/L (137-145)
[2019-01-20 14:48] LABS: Hemoglobin A1C% w Est Avg Glu 6.2 % (4.0-6.0)
[2019-01-20 15:17] LABS: Thyroid Stimulating Hormone 0.81 uIU/mL (0.47-4.68)
[2019-01-20 15:30] LABS: Vitamin D 25 Hydroxy (D3) 44.6 ng/mL (30.0-100.0)
[2019-01-20 15:46] LABS: Creatinine Urine Random 79.3 mg/dL
[2019-01-20 15:50] LABS: Microalbumin Urine Random 0.8 mg/dL (0-1.6)
== END ==
PROVIDERS: Family Provider Family Medicine; PCP Family Medicine; Visit Provider Internal Medicine Endocrinology, Diabetes & Metabolism
DX: M81.0 Age-related osteoporosis without current pathological fracture (principal); Z78.0 Asymptomatic menopausal state; E10.9 Type 1 diabetes mellitus without complications; E03.4 Atrophy of thyroid (acquired)
CPT/HCPCS: 36415; 77080; 80048; 82043; 82306; 82570; 83036; 84443

== ENCOUNTER → 2019-05-05 10:28 | Outpatient (CLI) | payer MEDICARE, OTHER, SELFPAY ==
[2019-05-05 11:04] LABS: Hemoglobin A1C% w Est Avg Glu 5.9 % (4.0-6.0)
== END ==
PROVIDERS: Family Provider Family Medicine; PCP Family Medicine; Visit Provider Internal Medicine Endocrinology, Diabetes & Metabolism
DX: E10.9 Type 1 diabetes mellitus without complications (principal)
CPT/HCPCS: 36415; 83036

== ENCOUNTER → 2019-07-25 15:55 | Outpatient (CLI) | payer MEDICARE, OTHER, SELFPAY ==
--- NOTE | 2019-07-25 15:56 | DI.ECHO.S_ITS ---
[place]---------+ [facility] +---------+ : : [address] : : : : [id number] : : : : Phone: [phone]---------+ Echocardiogram Report + + :Name: NAFISA JARRELL Study Date: 07/25/2019 Height: 65 in : :[facility] Weight: 112 lb : : Gender: Female BSA: 1.5 m2 : :: 1945 Age: 74 yrs BP: 112/82 mmHg: :Reason For Study: Murmur : : Performed By: Pao Hernandez : :Referring: CALVIN GOODMAN : + + Interpretation Summary The left ventricle is normal in size, wall thickness, and systolic function without any focal wall motion abnormalities. The ejection fraction is estimated to be 60-65%. Diastolic parameters suggest probable normal left ventricular diastolic function and normal filling pressures. The right ventricle is mildly dilated. The right ventricular systolic function is normal. The right ventricular systolic pressure is estimated to be at least 25 mmHg based on an estimated right atrial pressure of 3 mm Hg. The left atrium is mildly dilated. Right atrial size is normal. There is mild to moderate tricuspid regurgitation. There is no other significant valvular heart disease. The aortic root is normal size. Procedure: A two-dimensional transthoracic echocardiogram with color flow and Doppler was performed. The study quality was technically good. There is no prior echocardiogram noted for this patient. The patient was in normal sinus rhythm during the exam. Left Ventricle: The left ventricle is normal in size, wall thickness, and systolic function without any focal wall motion abnormalities. The ejection fraction is estimated to be 60-65%. Diastolic parameters suggest probable normal left ventricular diastolic function and normal filling pressures. Right Ventricle: The right ventricle is mildly dilated. The right ventricular systolic function is normal. Atria: The left atrium is mildly dilated. Right atrial size is normal. The interatrial septum is intact with no evidence for an atrial septal defect. Mitral Valve: The mitral valve leaflets appear borderline thickened, but open well. There is trace mitral regurgitation. Aortic Valve: The aortic valve is trileaflet. The aortic valve opens well. There is mild aortic valve sclerosis. There is trace aortic regurgitation. Tricuspid Valve: The tricuspid valve leaflets are thin and pliable. There is mild to moderate tricuspid regurgitation. The right ventricular systolic pressure is estimated to be at least 25 mmHg based on an estimated right atrial pressure of 3 mm Hg. Pulmonic Valve: The pulmonic valve is not well seen, but is grossly normal. There is trace pulmonic regurgitation. There is no other significant valvular heart disease. Great Vessels: The aortic root is normal size. The dimensions of the ascending aorta are normal. The aortic arch is normal in size. The IVC is of normal diameter and collapses greater than 50% with a sniff. This suggests a low right atrial pressure of 3 mm Hg. Pericardium/ Pleura There is no pericardial effusion. There is no pleural effusion. MMode/2D Measurements & Calculations LVIDd: 4.0 cm Ao root diam: 3.0 cm LVIDs: 2.5 cm Aortic Jxn: 2.5 cm FS: 37.0 % asc Aorta Diam: 2.8 cm EPSS: 0.45 cm Ao Arch Diam (Prox Trans): 2.1 cm IVSd: 0.66 cm LVPWd: 0.73 cm LV bullock. diameter/BSA (cm/m^2): 2.6 LV sys. diameter/BSA (cm/m^2): 1.6 LA dimension: 3.0 cm RA long axis: 4.2 cm LA A2 area: 17.8 cm2 RA area: 14.5 cm2 LA A4 area: 15.7 cm2 RA vol: 42.5 ml LA length (vol): 4.3 cm RA : 27.5 ml/m2 LA vol: 55.2 ml IVC diam: 1.3 cm LA vol index: 35.7 ml/m2 Doppler Measurements & Calculations Ao V2 max: 131.6 cm/sec MV E max lyndon: 99.6 cm/sec Ao V2 mean: 79.8 cm/sec MV A max lyndon: 89.1 cm/sec Ao max P.9 mmHg MV E/A: 1.1 Ao mean P.1 mmHg Med Peak E' Lyndon: 6.0 cm/sec Ao V2 VTI: 30.1 cm E/E' med: 16.6 Lat Peak E' Lyndon: 6.3 cm/sec E/E' lat: 15.8 E/e' average: 16.2 MV dec time: 0.28 sec MV P1/2t: 82.7 msec TR max lyndon: 234.7 cm/sec MV P1/2t max lyndon: 101.0 cm/sec TR max P.0 mmHg MVA(P1/2t): 2.7 cm2 PA V2 max: 84.7 cm/sec PA V2 mean: 55.4 cm/sec PA mean P.5 mmHg PA Accel Time: 0.17 sec Reading Physician:05:17 PM
== END ==
PROVIDERS: Family Provider Family Medicine; PCP Family Medicine; Visit Provider Family Medicine
DX: I07.1 Rheumatic tricuspid insufficiency (principal); R01.1 Cardiac murmur, unspecified
CPT/HCPCS: 93306

== ENCOUNTER → 2019-08-05 14:41 | Outpatient (CLI) | payer MEDICARE, OTHER, SELFPAY ==
[2019-08-05 15:54] LABS: Creatinine Urine Random 102.4 mg/dL
[2019-08-05 15:59] LABS: Microalbumi Creatinin Ratio Ur 14.6 ug/mg CR (<30); Microalbumin Urine Random 1.5 mg/dL (0-1.6)
== END ==
PROVIDERS: Family Provider Family Medicine; PCP Family Medicine; Visit Provider Internal Medicine Endocrinology, Diabetes & Metabolism
DX: E10.9 Type 1 diabetes mellitus without complications (principal)
CPT/HCPCS: 36415; 82043; 82570; 83036

== ENCOUNTER → 2019-11-04 14:18 | Outpatient (CLI) | payer MEDICARE, OTHER, SELFPAY ==
[2019-11-04 16:56] LABS: Thyroid Stimulating Hormone 2.06 uIU/mL (0.47-4.68)
[2019-11-04 18:07] LABS: Hemoglobin A1C% w Est Avg Glu 6.2 % (4.0-6.0)
== END ==
PROVIDERS: Family Provider Family Medicine; PCP Family Medicine; Referring Provider Internal Medicine Endocrinology, Diabetes & Metabolism; Visit Provider Internal Medicine Endocrinology, Diabetes & Metabolism
DX: E10.9 Type 1 diabetes mellitus without complications (principal); E03.9 Hypothyroidism, unspecified
CPT/HCPCS: 36415; 83036; 84443

== ENCOUNTER → 2020-02-10 08:46 | Outpatient (CLI) | payer MEDICARE, OTHER, SELFPAY ==
[2020-02-10 11:34] LABS: Hemoglobin A1C% w Est Avg Glu 6.1 % (4.0-6.0)
[2020-02-10 12:27] LABS: Blood Urea Nitrogen 15 mg/dL (7-17); Calcium 9.8 mg/dL (8.4-10.2); Carbon Dioxide 32 mmol/L (22-32); Chloride 97 mmol/L (98-107); Glucose 89 mg/dL (80-110); HEMOLYSIS < 15 (0-50); Potassium 4.4 mmol/L (3.4-5.1); Sodium 134 mmol/L (137-145)
[2020-02-10 12:28] LABS: Creatinine Urine Random 76.3 mg/dL
[2020-02-10 12:37] LABS: Microalbumi Creatinin Ratio Ur 7.8 ug/mg CR (<30); Microalbumin Urine Random < 0.6 mg/dL (0-1.6)
[2020-02-10 12:42] LABS: BUN Creatinine Ratio 18.1 (6-22); Estimated Glomerular Filt Rate > 60.0 mL/min (>60)
== END ==
PROVIDERS: Family Provider Family Medicine; PCP Family Medicine; Referring Provider Internal Medicine Endocrinology, Diabetes & Metabolism; Visit Provider Internal Medicine Endocrinology, Diabetes & Metabolism
DX: Z51.81 Encounter for therapeutic drug level monitoring (principal); E10.9 Type 1 diabetes mellitus without complications
CPT/HCPCS: 36415; 80048; 82043; 82570; 83036

== ENCOUNTER → 2020-03-29 10:22 | Outpatient (CLI) | payer MEDICARE, OTHER, SELFPAY ==
--- NOTE | 2020-03-29 10:36 | DI.MG.S_ITS ---
Patient Name: NAFISA JARRELL date: 1945 Sex: F Attending Physician: Torres Indications: Date: 03/29/2020 10:32 At the request of: CALVIN GOODMAN Procedure: MM screening mammo BI BILATERAL DIGITAL SCREENING MAMMOGRAM 3D/2D WITH CAD: 03/29/2020 CLINICAL: Routine screening. Family history of breast cancer. Comparison is made to exams dated: 10/11/2018 mammogram, 07/11/2017 mammogram, and 07/10/2016 mammogram - [facility]. The tissue of both breasts is extremely dense, which lowers the sensitivity of mammography. Current study was also evaluated with a Computer Aided Detection (CAD) system. There are benign post operative findings in both breasts. No significant masses, calcifications, or other findings are seen in either breast. There has been no significant interval change. IMPRESSION: There is no mammographic evidence of malignancy. A 1 year screening mammogram is recommended. This exam was interpreted at Station ID: [id number]. NOTE: For mammograms, a report in lay terms will be sent to the patient. Approximately 15% of breast malignancies will not be visualized mammographically. In the management of a palpable breast mass, a negative mammogram must not discourage biopsy of a clinically suspicious lesion. Electronically Signed By: Andre Torres M.D., jr/amanda:03/29/2020 16:35:09 letter sent: Normal Exam ACR BI-RADS Category 2: Benign Finding(s) 3342F
== END ==
PROVIDERS: Family Provider Family Medicine; PCP Family Medicine; Referring Provider Family Medicine; Visit Provider Family Medicine
DX: Z12.31 Encounter for screening mammogram for malignant neoplasm of breast (principal); Z80.3 Family history of malignant neoplasm of breast
CPT/HCPCS: 77063; 77067

== ENCOUNTER → 2020-05-10 14:21 | Outpatient (CLI) | payer MEDICARE, OTHER, SELFPAY ==
[2020-05-10 15:00] LABS: Hemoglobin A1C% w Est Avg Glu 6.2 % (4.0-6.0)
[2020-05-10 15:18] LABS: BUN Creatinine Ratio 19.1 (6-22); Blood Urea Nitrogen 17 mg/dL (7-17); Calcium 9.3 mg/dL (8.4-10.2); Carbon Dioxide 30 mmol/L (22-32); Chloride 97 mmol/L (98-107); Estimated Glomerular Filt Rate > 60.0 mL/min (>60); Glucose 79 mg/dL (80-110); HEMOLYSIS < 15 (0-50); Potassium 4.1 mmol/L (3.4-5.1); Sodium 134 mmol/L (137-145)
[2020-05-10 16:26] LABS: Creatinine Urine Random 48.3 mg/dL
[2020-05-10 16:29] LABS: Microalbumi Creatinin Ratio Ur 12.4 ug/mg CR (<30); Microalbumin Urine Random < 0.6 mg/dL (0-1.6)
== END ==
PROVIDERS: Family Provider Family Medicine; PCP Family Medicine; Referring Provider Family Medicine; Visit Provider Internal Medicine Endocrinology, Diabetes & Metabolism
DX: E10.9 Type 1 diabetes mellitus without complications (principal); Z51.81 Encounter for therapeutic drug level monitoring
CPT/HCPCS: 36415; 80048; 82043; 82570; 83036

== ENCOUNTER → 2020-08-09 14:39 | Outpatient (CLI) | payer MEDICARE, OTHER, SELFPAY ==
[2020-08-09 15:18] LABS: Hemoglobin A1C% w Est Avg Glu 6.3 % (4.0-6.0)
== END ==
PROVIDERS: Family Provider Family Medicine; PCP Family Medicine; Referring Provider Internal Medicine Endocrinology, Diabetes & Metabolism; Visit Provider Internal Medicine Endocrinology, Diabetes & Metabolism
DX: E10.9 Type 1 diabetes mellitus without complications (principal)
CPT/HCPCS: 36415; 83036

== ENCOUNTER → 2020-09-15 07:17 | Outpatient (CLI) | payer MEDICARE, OTHER, SELFPAY ==
[2020-09-15 09:12] LABS: Glucose 111 mg/dL (80-110)
[2020-09-15 23:07] LABS: C Peptide < 0.1 ng/mL (1.1-4.4)
== END ==
PROVIDERS: Family Provider Family Medicine; PCP Family Medicine; Referring Provider Internal Medicine Endocrinology, Diabetes & Metabolism; Visit Provider Internal Medicine Endocrinology, Diabetes & Metabolism
DX: E10.49 Type 1 diabetes mellitus with other diabetic neurological complication (principal); E10.65 Type 1 diabetes mellitus with hyperglycemia
CPT/HCPCS: 36415; 82947; 84681

== ENCOUNTER → 2020-11-20 12:00 | Outpatient (CLI) | payer MEDICARE, OTHER, SELFPAY ==
[2020-11-20 13:19] LABS: Creatinine Urine Random 29.4 mg/dL
[2020-11-20 13:23] LABS: BUN Creatinine Ratio 28.8 (6-22); Blood Urea Nitrogen 17 mg/dL (7-17); Calcium 9.8 mg/dL (8.4-10.2); Carbon Dioxide 28 mmol/L (22-32); Chloride 100 mmol/L (98-107); Estimated Glomerular Filt Rate > 60.0 mL/min (>60); Glucose 118 mg/dL (80-110); HEMOLYSIS 19 (0-50); Potassium 4.2 mmol/L (3.4-5.1); Sodium 134 mmol/L (137-145)
[2020-11-20 13:25] LABS: Microalbumin Urine Random < 0.6 mg/dL (0-1.6)
== END ==
PROVIDERS: Family Provider Family Medicine; PCP Family Medicine; Referring Provider Nurse Practitioner Family; Visit Provider Nurse Practitioner Family
DX: E10.65 Type 1 diabetes mellitus with hyperglycemia (principal)
CPT/HCPCS: 36415; 80048; 82043; 82570; 83036

== ENCOUNTER → 2021-02-10 14:23 | Outpatient (CLI) | payer MEDICARE, OTHER, SELFPAY ==
[2021-02-10 16:22] LABS: Hemoglobin A1C% w Est Avg Glu 6.4 % (4.0-6.0)
[2021-02-10 17:06] LABS: Vitamin D 25 Hydroxy (D3) 58.7 ng/mL (30.0-100.0)
[2021-02-10 17:25] LABS: Thyroid Stimulating Hormone 1.52 uIU/mL (0.47-4.68)
== END ==
PROVIDERS: Family Provider Family Medicine; Referring Provider Nurse Practitioner Family; Visit Provider Nurse Practitioner Family
DX: E10.65 Type 1 diabetes mellitus with hyperglycemia (principal); I10 Essential (primary) hypertension
CPT/HCPCS: 36415; 82306; 83036; 84443

== ENCOUNTER → 2021-05-06 16:13 | Outpatient (CLI) | payer MEDICARE, OTHER, SELFPAY ==
[2021-05-06 17:47] LABS: Hemoglobin A1C% w Est Avg Glu 6.1 % (4.0-6.0)
== END ==
PROVIDERS: Family Provider Family Medicine; PCP Physician Assistant; Referring Provider Nurse Practitioner Family; Visit Provider Nurse Practitioner Family
DX: E10.9 Type 1 diabetes mellitus without complications (principal); Z96.41 Presence of insulin pump (external) (internal)
CPT/HCPCS: 36415; 83036

== ENCOUNTER → 2021-08-05 15:07 | Outpatient (CLI) | payer MEDICARE, OTHER, SELFPAY ==
[2021-08-05 16:30] LABS: Hemoglobin A1C% w Est Avg Glu 6.1 % (4.0-6.0)
[2021-08-05 16:36] LABS: BUN Creatinine Ratio 22.7 (6-22); Blood Urea Nitrogen 22 mg/dL (7-17); Calcium 9.7 mg/dL (8.4-10.2); Carbon Dioxide 32 mmol/L (22-32); Chloride 98 mmol/L (98-107); Cholesterol 213 mg/dL (140-199); Glucose 96 mg/dL (80-110); HDL Cholesterol 80 mg/dL (40-60); HEMOLYSIS < 15 (0-50); LDL Cholesterol Calculated 123 mg/dL (<100); Potassium 4.2 mmol/L (3.4-5.1); Sodium 135 mmol/L (137-145); Triglycerides 52 mg/dL (35-150)
[2021-08-05 17:56] LABS: Creatinine Urine Random 90.1 mg/dL
[2021-08-05 18:02] LABS: Microalbumi Creatinin Ratio Ur 8.8 ug/mg CR (<30); Microalbumin Urine Random 0.8 mg/dL (0-1.6)
[2021-08-05 18:03] LABS: Thyroid Stimulating Hormone 2.17 uIU/mL (0.47-4.68)
== END ==
PROVIDERS: Family Provider Family Medicine; PCP Physician Assistant; Referring Provider Nurse Practitioner Family; Visit Provider Nurse Practitioner Family
DX: E10.9 Type 1 diabetes mellitus without complications (principal); Z96.41 Presence of insulin pump (external) (internal)
CPT/HCPCS: 36415; 80048; 80061; 82043; 82570; 83036; 84443

== ENCOUNTER → 2021-11-08 11:50 | Outpatient (CLI) | payer MEDICARE, OTHER, SELFPAY ==
[2021-11-08 12:37] LABS: Hemoglobin A1C% w Est Avg Glu 6.3 % (4.0-6.0)
== END ==
PROVIDERS: Family Provider Family Medicine; PCP Physician Assistant; Referring Provider Nurse Practitioner Family; Visit Provider Nurse Practitioner Family
DX: E10.9 Type 1 diabetes mellitus without complications (principal); Z96.41 Presence of insulin pump (external) (internal)
CPT/HCPCS: 36415; 83036

== ENCOUNTER → 2022-02-09 13:23 | Outpatient (CLI) | payer MEDICARE, OTHER, SELFPAY ==
[2022-02-09 15:37] LABS: Hemoglobin A1C% w Est Avg Glu 6.2 % (4.0-6.0)
[2022-02-09 15:50] LABS: Add Manual Diff / Slide Review NO; Basophils Absolute Auto 0 /uL (0-100); Basophils Percent Auto 0.8 % (0-2); Eosinophils Absolute Auto 100 /uL (0-450); Eosinophils Percent Auto 1.6 % (2-4); Hematocrit 33.6 % (36-46); Hemoglobin 11.4 g/dL (12.0-16.0); Lymphocytes Absolute Auto 1300 /uL (1100-4500); Lymphocytes Percent Auto 34.7 % (25-40); Mean Corpuscular HGB Conc 33.9 % (30-36); Mean Corpuscular Hemoglobin 30.6 PG (26-34); Mean Corpuscular Volume 90.3 fL (80-100); Monocytes Absolute Auto 300 /uL (0-900); Monocytes Percent Auto 8.7 % (3-14); Neutrophils Absolute Auto 2000 /uL (1500-7000); Neutrophils Percent Auto 54.2 % (50-75); Platelet Count 171 X10^3/uL (150-400); Red Blood Cell Count 3.72 X10^6/uL (4.0-5.2); Red Cell Distribution Width 13.5 % (11.6-14.8); White Blood Cell Count 3.6 X10^3/uL (4.5-11.0)
[2022-02-09 15:51] LABS: Alanine Aminotransferase 36 IU/L (<35); Albumin 4.4 g/dL (3.5-5.0); Albumin Globulin Ratio 1.3 (1.0-2.8); Alkaline Phosphatase 40 U/L (38-126); Aspartate Aminotransferase 40 IU/L (14-36); BUN Creatinine Ratio 23.2 (6-22); Bilirubin Total 0.3 mg/dL (0.2-1.3); Blood Urea Nitrogen 22 mg/dL (7-17); Calcium 9.3 mg/dL (8.4-10.2); Carbon Dioxide 29 mmol/L (22-32); Chloride 100 mmol/L (98-107); Estimated Glomerular Filt Rate > 60 mL/min (>60); Globulin 3.4 g/dL (1.7-4.1); Glucose 120 mg/dL (80-110); HEMOLYSIS < 15 (0-50); Magnesium 2.2 mg/dL (1.6-2.3); Potassium 4.2 mmol/L (3.4-5.1); Sodium 135 mmol/L (137-145); Total Protein 7.8 g/dL (6.3-8.2)
[2022-02-09 16:36] LABS: Vitamin B12 > 1000 pg/mL (239-931)
[2022-02-09 16:38] LABS: Free T3, Triiodothyronine Free 2.63 pg/mL (2.77-5.27)
[2022-02-09 16:53] LABS: TSH w/ Reflex to FT4 1.78 uIU/mL (0.47-4.68)
[2022-02-10 20:31] LABS: Zinc 81 ug/dL (44-115)
[2022-02-10 21:07] LABS: Folate, RBC >1856 ng/mL (>498); Hematocrit 33.4 % (34.0-46.6); Hemolysate >620.0 ng/mL (Not Estab.)
[2022-02-15 13:24] LABS: Thyroglobulin Level 7.6 ng/mL (.)
[2022-02-17 09:26] LABS: Triiodothyronine T3 Reverse 21.2 ng/dL (9.2-24.1)
[2022-02-17 09:51] LABS: Vitamin A 31.6 ug/dL (22.0-69.5)
== END ==
PROVIDERS: Family Provider Family Medicine; PCP Physician Assistant; Referring Provider Nurse Practitioner Family; Visit Provider Nurse Practitioner Family
DX: E03.9 Hypothyroidism, unspecified (principal); I10 Essential (primary) hypertension
CPT/HCPCS: 36415; 80053; 82607; 82747; 83036; 83735; 84432; 84443; 84481; 84482; 84590; 84630; 85014; 85025

== ENCOUNTER → 2022-03-08 11:27 | Outpatient (CLI) | payer MEDICARE, OTHER, SELFPAY ==
--- NOTE | 2022-03-08 | DI.MG.S_ITS ---
BILATERAL DIGITAL SCREENING MAMMOGRAM 3D/2D WITH CAD: 03/08/2022 CLINICAL: Routine screening. Family history of breast cancer. Comparison is made to exams dated: 03/29/2020 mammogram, 10/11/2018 mammogram, and 07/11/2017 mammogram - [facility]. The tissue of both breasts is extremely dense, which lowers the sensitivity of mammography. Current study was also evaluated with a Computer Aided Detection (CAD) system. There are benign post operative findings in both breasts. No significant masses, calcifications, or other findings are seen in either breast. There has been no significant interval change. IMPRESSION: BENIGN There is no mammographic evidence of malignancy. A 1 year screening mammogram is recommended. This exam was interpreted at Station ID: [id number]. NOTE: For mammograms, a report in lay terms will be sent to the patient. Approximately 15% of breast malignancies will not be visualized mammographically. In the management of a palpable breast mass, a negative mammogram must not discourage biopsy of a clinically suspicious lesion. Electronically Signed By: Robel kumar/amanda:03/08/2022 13:24:58 letter sent: Normal Exam ACR BI-RADS Category 2: Benign Finding(s) 3342F
== END ==
PROVIDERS: Family Provider Family Medicine; PCP Physician Assistant; Referring Provider Physician Assistant; Visit Provider Physician Assistant
DX: Z12.31 Encounter for screening mammogram for malignant neoplasm of breast (principal); Z80.3 Family history of malignant neoplasm of breast
CPT/HCPCS: 77063; 77067

== ENCOUNTER → 2022-03-15 11:32 | Outpatient (CLI) | payer MEDICARE, OTHER, SELFPAY | PROVIDERS: Family Provider Family Medicine; PCP Physician Assistant; Referring Provider Physician Assistant; Visit Provider Physician Assistant | DX: E10.9 Type 1 diabetes mellitus without complications (principal); Z96.41 Presence of insulin pump (external) (internal) | CPT/HCPCS: 82274 ==

== ENCOUNTER → 2022-04-08 11:29 | Outpatient (CLI) | payer MEDICARE, OTHER, SELFPAY ==
[2022-04-11 06:25] LABS: Fecal Immunochemical Test Negative (Negative)
== END ==
PROVIDERS: Family Provider Family Medicine; PCP Physician Assistant; Referring Provider Physician Assistant; Visit Provider Physician Assistant
DX: Z12.11 Encounter for screening for malignant neoplasm of colon (principal)
CPT/HCPCS: 82274

== ENCOUNTER → 2022-04-20 12:13 | Outpatient (CLI) | payer MEDICARE, OTHER, SELFPAY | PROVIDERS: Family Provider Family Medicine; PCP Physician Assistant; Referring Provider Physician Assistant; Visit Provider Physician Assistant | DX: Z78.0 Asymptomatic menopausal state (principal); Z13.820 Encounter for screening for osteoporosis; M81.0 Age-related osteoporosis without current pathological fracture | CPT/HCPCS: 77080 ==

== ENCOUNTER → 2022-06-06 13:08 | Outpatient (CLI) | payer MEDICARE, OTHER, SELFPAY ==
[2022-06-06 15:13] LABS: Hemoglobin A1C% w Est Avg Glu 6.1 % (4.0-6.0)
== END ==
PROVIDERS: Family Provider Family Medicine; PCP Physician Assistant; Referring Provider Nurse Practitioner Family; Visit Provider Nurse Practitioner Family
DX: E10.9 Type 1 diabetes mellitus without complications (principal); Z96.41 Presence of insulin pump (external) (internal)
CPT/HCPCS: 36415; 83036

== ENCOUNTER 2022-07-14 10:30 | Outpatient (RCR) | payer MEDICARE, OTHER, SELFPAY ==
--- NOTE | 2022-06-30 15:50 | PT.OIE ---
Current Diagnoses Urge incontinence (06/30/22) Urgency of urination (06/30/22) Past Medical History (Last Updated 06/21/20 @ 17:10 by Clau Vivar MD) After cataract, bilateral Hypothyroid Type 1 DM mild nonproliferative retinopathy, macular edema, uncontrol Vulvodynia Vulvodynia Visit Care Team Role Provider Type Lita Hercules PA-C Attending Provider Non-Staff Family Provider Primary Care Provider Referring Provider Specialty: Medical Address: [address] [place] [address], [id number] Email: Physical Therapy Initial Evaluation PT-OP-A Visit Information Start: 06/29/22 21:33 Freq: Status: Active Protocol: Document 06/30/22 10:30 AMB (Rec: 06/30/22 14:21 AMB [id number]) Out-Patient Physical Therapy Visit Information Visit Information Visit Type Initial Evaluation Visit Start Time 10:30 Visit Stop Time 11:15 Total Visit Minutes 45 Visit Number 1 PT-OP-B Current Condition Start: 06/29/22 21:33 Freq: Status: Active Protocol: Document 06/30/22 10:42 AMB (Rec: 06/30/22 10:56 AMB [id number]) Current Condition History of Current Condition Onset Date a couple years Current Complaints urgency History of Current Condition Nighttime leaking on the way to the bathroom. Gets up to use the bathroom 1-2x/night. Has to plan her errands around who has the bathroom. Uncomfortable if goes more than an hour without voiding. Turning the water on is a trigger. Also has vulvodynia- under control with amytriptiline, does feel discomfort mostly rectally when bladder gets especially full. Denies heaviness/ prolapse sx. 3 children all vaginal deliveries did have episiotomies. Does use Estrogen ring. Treatment Goals Patient/Caregiver Goals REduce urgency Prior Functional Status Baseline Function- ADL's Independent Baseline Function- Mobility Independent Current Functional Impairments (Reported) Functional Limitations- ADL's Urinary frequency, urgency, urge incontinence at night Personal Factors Other Personal Factors That May Effect Osteoporosis, DMI, hypothyroid Therapy/Recovery PT-OP-C Subjective Start: 06/29/22 21:33 Freq: Status: Active Protocol: Document 06/30/22 10:30 AMB (Rec: 06/30/22 14:21 AMB [id number]) Patient Questionnaires Pelvic Pain and Urgency/Frequency Patient Symptom Scale Pelvic Pain Score 8 PT-OP-I Pelvic Floor Start: 06/29/22 21:33 Freq: Status: Active Protocol: Document 06/30/22 14:21 AMB (Rec: 06/30/22 14:22 AMB [id number]) Pelvic Floor Assessment Urine Urinary Symptoms Urge Sensation,Hesitancy Leakage Size Small Leakage Cause Urge Voiding Frequency hourly Nocturia 2 PT-OP-T Assessment and Plan Start: 06/29/22 21:33 Freq: Status: Active Protocol: Document 06/30/22 10:30 AMB (Rec: 06/30/22 15:50 AMB [id number]) Physical Therapy Assessment Rehab Potential Rehabilitation Potential Good Goals Two Impairment Frequency Short Term Goal (STG) Ivelisse will be able to increase the time between voids to 2 hours. STG Duration 5 weeks Diesel Dinkey Engineer Goal (LTG) Ivelisse will consistently wake to void once at night or less. LTG Duration 10 weeks One Impairment Urgency Short Term Goal (STG) Ivelisse will wash her hands without feeling the need to urinate. STG Duration 5 weeks Diesel Dinkey Engineer Goal (LTG) Ivelisse will walk from her bed to the bathroom without leaking. LTG Duration 10 weeks Assessment Summary Assessment Ivelisse attends PT with urinary urgency throughout the day, and some episodes of urge incontinence at night. Really does not endorse stress incontinence, so pelvic floor strength was not evaluated today, rather educated in urge reduction strategies and starting to work on frequency. If prolapse is suspected, or pt having difficulty with pelvic floor strengthening will further evaluate internally. Physical Therapy Plan Frequency and Duration Frequency of Treatment 1x/Week Duration of treatment (weeks) 10 Plan of Care Start Date 06/30/22 Plan of Care End Date 09/08/22 Therapeutic Interventions Therapeutic Interventions Home Exercise Program,Manual Therapy,Neuromuscular Re- education,Self-Care/Home Management,Therapeutic Activities,Therapeutic Exercises Modalities Biofeedback,Electric Stimulation Next Visit Focus/Plan Next Note Type Treatment Note Next Visit Plan Reassess urgency, if needed assess for prolapse, pelvic floor strength, pelvic floor relaxation for voiding without hesitancy
--- NOTE | 2022-06-30 15:50 | PT.OPPOC ---
Physical, Occupational & Speech Therapy At Current Diagnoses Urge incontinence (06/30/22) Urgency of urination (06/30/22) Visit Care Team Role Provider Type Lita Hercules PA-C Attending Provider Non-Staff Family Provider Primary Care Provider Referring Provider Specialty: Medical Address: [address] [place] [address], [id number] Email: Plan Of Care PT-OP-T Assessment and Plan Start: 06/29/22 21:33 Freq: Status: Active Protocol: Document 06/30/22 10:30 AMB (Rec: 06/30/22 15:50 AMB [id number]) Physical Therapy Assessment Rehab Potential Rehabilitation Potential Good Goals Two Impairment Frequency Short Term Goal (STG) Ivelisse will be able to increase the time between voids to 2 hours. STG Duration 5 weeks Investigations Consultant Goal (LTG) Ivelisse will consistently wake to void once at night or less. LTG Duration 10 weeks One Impairment Urgency Short Term Goal (STG) Ivelisse will wash her hands without feeling the need to urinate. STG Duration 5 weeks Senior Care Goal (LTG) Ivelisse will walk from her bed to the bathroom without leaking. LTG Duration 10 weeks Assessment Summary Assessment Ivelisse attends PT with urinary urgency throughout the day, and some episodes of urge incontinence at night. Really does not endorse stress incontinence, so pelvic floor strength was not evaluated today, rather educated in urge reduction strategies and starting to work on frequency. If prolapse is suspected, or pt having difficulty with pelvic floor strengthening will further evaluate internally. Physical Therapy Plan Frequency and Duration Frequency of Treatment 1x/Week Duration of treatment (weeks) 10 Plan of Care Start Date 06/30/22 Plan of Care End Date 09/08/22 Therapeutic Interventions Therapeutic Interventions Home Exercise Program,Manual Therapy,Neuromuscular Re- education,Self-Care/Home Management,Therapeutic Activities,Therapeutic Exercises Modalities Biofeedback,Electric Stimulation Next Visit Focus/Plan Next Note Type Treatment Note Next Visit Plan Reassess urgency, if needed assess for prolapse, pelvic floor strength, pelvic floor relaxation for voiding without hesitancy Plan of Care Dates Plan of Care Start Date 06/30/22 Plan of Care End Date 09/08/22 Electronically Signed by: Latrice Jose, PT 06/30/22 0620 If you are in agreement with this Plan of Care, please return a signed and dated copy. I have reviewed this Plan of Care and certify that the skilled therapy services above are required to meet the patient?s needs. Physician Signature Date Printed Name and Credentials Clinical Instructor Signature Printed Name and Credentials
--- NOTE | 2022-07-14 11:16 | PT.OTN ---
Current Diagnoses Urge incontinence (07/14/22) Urgency of urination (07/14/22) Physical Therapy Treatment Note PT-OP-A Visit Information Start: 06/29/22 21:33 Freq: Status: Active Protocol: Document 07/14/22 10:28 AMB (Rec: 07/14/22 11:01 AMB [id number]) Out-Patient Physical Therapy Visit Information Visit Information Visit Type Treatment Note Visit Start Time 10:30 Visit Stop Time 11:15 Total Visit Minutes 45 Visit Number 2 PT-OP-B Current Condition Start: 06/29/22 21:33 Freq: Status: Active Protocol: Document 06/30/22 10:42 AMB (Rec: 06/30/22 10:56 AMB [id number]) Current Condition History of Current Condition Onset Date a couple years Current Complaints urgency History of Current Condition Nighttime leaking on the way to the bathroom. Gets up to use the bathroom 1-2x/night. Has to plan her errands around who has the bathroom. Uncomfortable if goes more than an hour without voiding. Turning the water on is a trigger. Also has vulvodynia- under control with amytriptiline, does feel discomfort mostly rectally when bladder gets especially full. Denies heaviness/ prolapse sx. 3 children all vaginal deliveries did have episiotomies. Does use Estrogen ring. Treatment Goals Patient/Caregiver Goals REduce urgency Prior Functional Status Baseline Function- ADL's Independent Baseline Function- Mobility Independent Current Functional Impairments (Reported) Functional Limitations- ADL's Urinary frequency, urgency, urge incontinence at night Personal Factors Other Personal Factors That May Effect Osteoporosis, DMI, hypothyroid Therapy/Recovery PT-OP-C Subjective Start: 06/29/22 21:33 Freq: Status: Active Protocol: Document 07/14/22 10:28 AMB (Rec: 07/14/22 11:01 AMB [id number]) OP-PT Subjective Patient Comments Patient Comments Ivelisse is noticing 3-4/10 pain. at baseline with sitting. PT-OP-I Pelvic Floor Start: 06/29/22 21:33 Freq: Status: Active Protocol: Document 06/30/22 14:21 AMB (Rec: 06/30/22 14:22 AMB [id number]) Pelvic Floor Assessment Urine Urinary Symptoms Urge Sensation,Hesitancy Leakage Size Small Leakage Cause Urge Voiding Frequency hourly Nocturia 2 PT-OP-Q Treatments Start: 06/29/22 21:33 Freq: Status: Active Protocol: Document 07/14/22 10:30 AMB (Rec: 07/14/22 11:14 AMB [id number]) Therapeutic Exercises Standing Exercises quick contract/long hold Standing Exercise Name with focus on relaxation Self-Care/Home Management Treatment Education Other Education hip openers stretching, role of PF tension in vulvodynia PT-OP-T Assessment and Plan Start: 06/29/22 21:33 Freq: Status: Active Protocol: Document 07/14/22 10:28 AMB (Rec: 07/14/22 11:01 AMB [id number]) Physical Therapy Assessment Goals Two Impairment Frequency Short Term Goal (STG) Ivelisse will be able to increase the time between voids to 2 hours. STG Duration PARTIALLY MET Halfway Goal (LTG) Ivelisse will consistently wake to void once at night or less. LTG Duration MET One Impairment Urgency Short Term Goal (STG) Ivelisse will wash her hands without feeling the need to urinate. STG Duration MET Biological Inspector Goal (LTG) Ivelisse will walk from her bed to the bathroom without leaking. LTG Duration 10 weeks Assessment Summary Assessment Ivelisse attends PT very happy with improving urgency sx. Has also noticed increasing pain, but not sure if that is realated. Education on role of PT in vulvodynia, will want to see pt further despite doing well with urgency/ frequency to make sure exercises are not increasing pain. Physical Therapy Plan Next Visit Focus/Plan Next Note Type Treatment Note Next Visit Plan REassess pain and role of pelvic floor strengthening
--- NOTE | 2022-08-07 11:00 | PT.OPDS ---
Current Diagnoses Urge incontinence (07/14/22) Urgency of urination (07/14/22) Visit Care Team Role Provider Type Lita Hercules PA-C Attending Provider Non-Staff Family Provider Primary Care Provider Referring Provider Specialty: Medical [place]: [place], [address] Email: Visit Number Visit Number 2 Discharge Summary PT-OP-B Current Condition Start: 06/29/22 21:33 Freq: Status: Active Protocol: Document 06/30/22 10:42 AMB (Rec: 06/30/22 10:56 AMB [id number]) Current Condition History of Current Condition Onset Date a couple years Current Complaints urgency History of Current Condition Nighttime leaking on the way to the bathroom. Gets up to use the bathroom 1-2x/night. Has to plan her errands around who has the bathroom. Uncomfortable if goes more than an hour without voiding. Turning the water on is a trigger. Also has vulvodynia- under control with amytriptiline, does feel discomfort mostly rectally when bladder gets especially full. Denies heaviness/ prolapse sx. 3 children all vaginal deliveries did have episiotomies. Does use Estrogen ring. Treatment Goals Patient/Caregiver Goals REduce urgency Prior Functional Status Baseline Function- ADL's Independent Baseline Function- Mobility Independent Current Functional Impairments (Reported) Functional Limitations- ADL's Urinary frequency, urgency, urge incontinence at night Personal Factors Other Personal Factors That May Effect Osteoporosis, DMI, hypothyroid Therapy/Recovery PT-OP-C Subjective Start: 06/29/22 21:33 Freq: Status: Active Protocol: Document 07/14/22 10:28 AMB (Rec: 07/14/22 11:01 AMB [id number]) OP-PT Subjective Patient Comments Patient Comments Ivelisse is noticing 3-4/10 pain. at baseline with sitting. PT-OP-I Pelvic Floor Start: 06/29/22 21:33 Freq: Status: Active Protocol: Document 06/30/22 14:21 AMB (Rec: 06/30/22 14:22 AMB [id number]) Pelvic Floor Assessment Urine Urinary Symptoms Urge Sensation,Hesitancy Leakage Size Small Leakage Cause Urge Voiding Frequency hourly Nocturia 2 PT-OP-T Assessment and Plan Start: 06/29/22 21:33 Freq: Status: Active Protocol: Document 08/07/22 10:57 AMB (Rec: 08/07/22 11:00 AMB [id number]) Physical Therapy Assessment Goals Two Impairment Frequency Short Term Goal (STG) Ivelisse will be able to increase the time between voids to 2 hours. STG Duration PARTIALLY MET Long-Term Goal (LTG) Ivelisse will consistently wake to void once at night or less. LTG Duration MET One Impairment Urgency Short Term Goal (STG) Ivelisse will wash her hands without feeling the need to urinate. STG Duration MET Pusher Runner Goal (LTG) Ivelisse will walk from her bed to the bathroom without leaking. LTG Duration 10 weeks Assessment Summary Assessment Ivelisse canceled her last remaining appointment as she is feeling ready for discharge . She had met most of her goals at her last appointment. Physical Therapy Plan Discharge Physical Therapy Discharge Reasons Patient Request
== END 2022-08-08 12:16 | disposition home or self-care (01) ==
LOC: PHYS 10:30
PROVIDERS: Family Provider Physician Assistant; PCP Physician Assistant; Referring Provider Physician Assistant; Visit Provider Physician Assistant
DX: N39.41 Urge incontinence (principal)
CPT/HCPCS: 97110; 97161; 97535

== ENCOUNTER → 2022-08-23 12:25 | Outpatient (CLI) | payer MEDICARE, OTHER, SELFPAY ==
[2022-08-23 15:12] LABS: Hemoglobin A1C% w Est Avg Glu 6.2 % (4.0-6.0)
== END ==
PROVIDERS: Family Provider Physician Assistant; PCP Physician Assistant; Referring Provider Nurse Practitioner Family; Visit Provider Nurse Practitioner Family
DX: E10.9 Type 1 diabetes mellitus without complications (principal); Z96.41 Presence of insulin pump (external) (internal)
CPT/HCPCS: 36415; 83036

== ENCOUNTER → 2022-11-15 11:20 | Outpatient (CLI) | payer MEDICARE, OTHER, SELFPAY ==
[2022-11-15 12:26] LABS: Hemoglobin A1C% w Est Avg Glu 6.1 % (4.0-6.0)
[2022-11-15 13:05] LABS: Cholesterol 224 mg/dL (140-199); HDL Cholesterol 89 mg/dL (40-60); LDL Cholesterol Calculated 126 mg/dL (<100); Triglycerides 46 mg/dL (35-150)
[2022-11-15 21:06] LABS: Creatinine Urine Random 81.8 mg/dL; Microalbumi Creatinin Ratio Ur 9.7 ug/mg CR (<30); Microalbumin Urine Random 0.8 mg/dL (0-1.6)
== END ==
PROVIDERS: Family Provider Physician Assistant; PCP Physician Assistant; Referring Provider Nurse Practitioner Family; Visit Provider Nurse Practitioner Family
DX: E10.649 Type 1 diabetes mellitus with hypoglycemia without coma (principal)
CPT/HCPCS: 36415; 80061; 82043; 82570; 83036

== ENCOUNTER → 2023-02-28 10:05 | Outpatient (CLI) | payer MEDICARE, OTHER, SELFPAY ==
[2023-02-28 12:49] LABS: Thyroid Stimulating Hormone 0.861 uIU/mL (0.47-4.68)
[2023-03-01 03:36] LABS: Labcorp Hemoglobin (Hb) A1c 6.4 % (4.8-5.6)
== END ==
PROVIDERS: Family Provider Physician Assistant; PCP Family Medicine; Referring Provider Nurse Practitioner Family; Visit Provider Nurse Practitioner Family
DX: E10.9 Type 1 diabetes mellitus without complications (principal); E03.9 Hypothyroidism, unspecified
CPT/HCPCS: 36415; 83036; 84439; 84443

== ENCOUNTER → 2023-05-29 15:12 | Outpatient (CLI) | payer MEDICARE, OTHER, SELFPAY ==
[2023-05-29 15:58] LABS: Hemoglobin A1C% w Est Avg Glu 6.5 % (4.0-6.0)
== END ==
PROVIDERS: Family Provider Physician Assistant; PCP Family Medicine; Referring Provider Nurse Practitioner Family; Visit Provider Nurse Practitioner Family
DX: E10.9 Type 1 diabetes mellitus without complications (principal)
CPT/HCPCS: 36415; 83036

== ENCOUNTER → 2023-06-05 12:34 | Outpatient (CLI) | payer MEDICARE, OTHER, SELFPAY ==
[2023-06-05 14:21] LABS: TSH w/ Reflex to FT4 1.12 uIU/mL (0.47-4.68)
== END ==
PROVIDERS: Family Provider Physician Assistant; PCP Family Medicine; Referring Provider Family Medicine; Visit Provider Family Medicine
DX: E03.9 Hypothyroidism, unspecified (principal)
CPT/HCPCS: 36415; 84443

== ENCOUNTER → 2023-08-27 13:19 | Outpatient (CLI) | payer MEDICARE, OTHER, SELFPAY ==
[2023-08-27 13:54] LABS: Hemoglobin A1C% w Est Avg Glu 6.3 % (4.0-6.0)
[2023-08-27 14:23] LABS: Free T4, Direct Thyroxine 1.91 ng/dL (0.78-2.19)
[2023-08-27 14:38] LABS: Thyroid Stimulating Hormone 0.889 uIU/mL (0.47-4.68)
== END ==
PROVIDERS: Family Provider Physician Assistant; PCP Family Medicine; Referring Provider Nurse Practitioner Family; Visit Provider Nurse Practitioner Family
DX: E10.9 Type 1 diabetes mellitus without complications (principal); E03.9 Hypothyroidism, unspecified
CPT/HCPCS: 36415; 83036; 84439; 84443

== ENCOUNTER → 2023-09-05 15:13 | Outpatient (CLI) | payer MEDICARE, OTHER, SELFPAY ==
[2023-09-05 15:47] LABS: HEMOLYSIS < 15 (0-50); Iron 60 ug/dL (37-170)
[2023-09-05 15:49] LABS: Alanine Aminotransferase 29 IU/L (<35); Albumin 4.4 g/dL (3.5-5.0); Albumin Globulin Ratio 1.3 (1.0-2.8); Alkaline Phosphatase 46 U/L (38-126); Aspartate Aminotransferase 35 IU/L (14-36); BUN Creatinine Ratio 20.8 (6-22); Bilirubin Total 0.4 mg/dL (0.2-1.3); Blood Urea Nitrogen 15 mg/dL (7-17); Calcium 10.2 mg/dL (8.4-10.2); Carbon Dioxide 32 mmol/L (22-32); Chloride 96 mmol/L (98-107); Estimated Glomerular Filt Rate > 60 mL/min (>60); Globulin 3.4 g/dL (1.7-4.1); Glucose 149 mg/dL (80-110); HEMOLYSIS < 15 (0-50); Potassium 4.4 mmol/L (3.4-5.1); Sodium 134 mmol/L (137-145); Total Protein 7.8 g/dL (6.3-8.2)
[2023-09-05 15:53] LABS: Add Manual Diff / Slide Review NO; Basophils Absolute Auto 0 /uL (0-100); Basophils Percent Auto 0.6 % (0-2); Eosinophils Absolute Auto 0 /uL (0-450); Hematocrit 34.6 % (36-46); Hemoglobin 11.6 g/dL (12.0-16.0); Lymphocytes Absolute Auto 1500 /uL (1100-4500); Lymphocytes Percent Auto 34.1 % (25-40); Mean Corpuscular HGB Conc 33.5 % (30-36); Mean Corpuscular Hemoglobin 30.1 PG (26-34); Mean Corpuscular Volume 89.8 fL (80-100); Monocytes Absolute Auto 400 /uL (0-900); Monocytes Percent Auto 9.5 % (3-14); Neutrophils Absolute Auto 2300 /uL (1500-7000); Neutrophils Percent Auto 54.8 % (50-75); Platelet Count 213 X10^3/uL (150-400); Red Blood Cell Count 3.85 X10^6/uL (4.0-5.2); Red Cell Distribution Width 13.4 % (11.6-14.8); White Blood Cell Count 4.3 X10^3/uL (4.5-11.0)
[2023-09-05 15:58] LABS: Percent Iron Saturation 24 % (15-50); Total Iron Binding Capacity 246 ug/dL (265-497); Transferrin 218 mg/dL (206-381)
[2023-09-05 16:23] LABS: Ferritin 34 ng/mL (11-264)
[2023-09-05 16:38] LABS: Vitamin B12 > 1000 pg/mL (239-931)
== END ==
PROVIDERS: Family Provider Physician Assistant; PCP Family Medicine; Referring Provider Physician Assistant; Visit Provider Physician Assistant
DX: H81.10 Benign paroxysmal vertigo, unspecified ear (principal); E10.9 Type 1 diabetes mellitus without complications; G62.9 Polyneuropathy, unspecified
CPT/HCPCS: 36415; 80053; 82607; 82728; 83540; 83550; 85025

== ENCOUNTER → 2023-09-18 13:16 | Outpatient (CLI) | payer MEDICARE, OTHER, SELFPAY ==
[2023-09-19 06:44] LABS: Fecal Immunochemical Test Negative (Negative)
== END ==
PROVIDERS: Family Provider Physician Assistant; PCP Family Medicine; Referring Provider Physician Assistant; Visit Provider Physician Assistant
DX: H81.10 Benign paroxysmal vertigo, unspecified ear (principal)
CPT/HCPCS: 82274

== ENCOUNTER 2023-09-25 13:45 | Outpatient (RCR) | payer MEDICARE, OTHER, SELFPAY ==
--- NOTE | 2023-09-20 13:59 | PT.OIE ---
Current Diagnoses Benign paroxysmal vertigo, unspecified ear (09/20/23) Benign paroxysmal vertigo, right ear (09/20/23) Unsteadiness on feet (09/20/23) Dizziness and giddiness (09/20/23) History of falling (09/20/23) Past Medical History (Last Updated 01/13/23 @ 20:16 by Maura Elkins) After cataract, bilateral Hypothyroid Osteopenia Type 1 DM mild nonproliferative retinopathy, macular edema, uncontrol Vulvodynia Vulvodynia Past Surgical History (Last Updated 01/13/23 @ 20:16 by Maura Elkins) Anesthesia Breast cyst Visit Care Team Role Provider Type Martha Ponce DO Family Provider Physician Primary Care Provider Specialty: Medical Address: [address] [place] [address], [address], [address] Email: [email or web address] Ximena Serrano PA-C Attending Provider Advanced B And B Gang Worker Referring Provider Specialty: Medical Wound Care Address: [address] [place] [address], [id number] Email: [email or web address] Physical Therapy Initial Evaluation PT-OP-A Visit Information Start: 09/20/23 13:44 Freq: Status: Active Protocol: Document 09/20/23 09:45 DCW (Rec: 09/20/23 13:58 DCW [id number]) Out-Patient Physical Therapy Visit Information Visit Information Visit Type Initial Evaluation Visit Start Time 09:45 Visit Stop Time 10:30 Total Visit Minutes 45 Visit Number 1 Number of NEUROPATHOLOGIST Visits 0 Evaluation Information Evaluation Date 09/20/23 PT-OP-B Current Condition Start: 09/20/23 13:44 Freq: Status: Active Protocol: Document 09/20/23 09:45 DCW (Rec: 09/20/23 13:58 DCW [id number]) Current Condition History of Current Condition Onset Date 2022 Current Complaints Vertigo, falls, unsteadiness on feet History of Current Condition Pt is a 78 year old female complaining of a 1.5 month history of both spontaneous and motion-induced vertigo/ imbalance. Pt reports sensation of imbalance is constantly present at a low level, but symptoms of vertigo occur with laying down, getting up, and head movement. Pt denies recent hearing changes, tinnitus, diplopia, dysarthria, discoordination, or decreased mentation/ consciousness. Pt reports symptoms are waxing/waning in nature. Was previously seen at this clinic for general dizziness in ~2018, also had a VNG at that time, which showed left vestibular hypofunction. Treatment Goals Patient/Caregiver Goals Eliminate vertigo PT-OP-C Subjective Start: 09/20/23 13:44 Freq: Status: Active Protocol: Document 09/20/23 09:45 DCW (Rec: 09/20/23 13:58 DCW [id number]) OP-PT Subjective Patient Comments Patient Comments This is the third time something like this has happened. When it started, I got out of bed, and fell before I really even noticed I was dizzy. Patient Questionnaires Dizziness Handicap Inventory DHI Score 60% Other Questionnaire Name and Score Falls Efficacy Scale- International (FES-I): PT-OP-O Vestibular Start: 09/20/23 13:44 Freq: Status: Active Protocol: Document 09/20/23 09:45 DCW (Rec: 09/20/23 13:58 DCW [id number]) Vestibular Assessment Auditory Tests Castillo Test Lateralizes left Rinne Test Negative Air Conduction Results Equal Visual Testing Smooth Pursuits Horizontal WNL Smooth Pursuits Vertical WNL Saccades Horizontal WNL Saccades Vertical WNL Heave Test Positive Bilateral Thrust Head Positive Bilateral Spontaneous Nystagmus Negative Positional Testing Hammad-Hallpike Positive Right,Negative Left, Upbeating,< 60 Seconds PT-OP-Q Treatments Start: 09/20/23 13:44 Freq: Status: Active Protocol: Document 09/20/23 09:45 DCW (Rec: 09/20/23 13:58 DCW [id number]) Canalithic Repositioning BPPV Treatment Elizabeth Affected Canal(s) Right posterior canal Reps x2 Comments Modified Elizabeth PT-OP-T Assessment and Plan Start: 09/20/23 13:44 Freq: Status: Active Protocol: Document 09/20/23 09:45 DCW (Rec: 09/20/23 13:58 DCW [id number]) Physical Therapy Assessment Rehab Potential Rehabilitation Potential Excellent Evaluation Complexity Number of Personal Factors/Comorbidities 0 Number of Body Systems Impaired 1-2 Clinical Presentation at Evaluation Unstable Impairments Impairments Balance,Coordination, Functional Activities, Functional Mobility,Vestibular Goals Two Impairment Pt experiences worsened symptoms with bed mobility Short Term Goal (STG) Pt to report no increase in symptoms during bed mobility for one full week. STG Duration 10/04/23 Skilled Nursing Goal (LTG) Pt to present with negative positional testing bilaterally LTG Duration 10/21/23 One Impairment Pt scores a 60% on the Dizziness Handicap Inventory Vice President Compliance Goal (LTG) Pt to demonstrate improved symptoms by reducing subjective score on the DHI by at least 30 points to 30%. LTG Duration 10/21/23 Assessment Summary Assessment During right Hammad-Hallpike test , pt complained of vertigo and demonstrated up-beating, torsional nystagmus lasting approximately 10 seconds, consistent with diagnosis of right-sided posterior canal BPPV, canalithiasis-type. Pt was treated with a right-sided modified Elizabeth maneuver. Pt complained of symptoms in the first and third position, which is normally indicative of a successful treatment. Further positional testing was negative. Pt was educated on BPPV, expectations for treatment, possible recurrence (BPPV has a ~50% recurrence rate in the five years following treatment), and post -Elizabeth restrictions. Pt to return in ~1 week for a follow -up appointment, and intermittently afterward as indicated for treatment of BPPV. Physical Therapy Plan Frequency and Duration Frequency of Treatment 1-2x/week Plan of Care Start Date 09/20/23 Plan of Care End Date 10/21/23 Therapeutic Interventions Therapeutic Interventions Balance Training,Canalithic Repositioning,Coordination Training,Home Exercise Program ,Manual Therapy,Neuromuscular Re-education,Patient/Caregiver Education,Self-Care/Home Management,Therapeutic Activities,Therapeutic Exercises,Vestibular Rehabilitation Next Visit Focus/Plan Next Note Type Treatment Note Next Visit Plan Positional testing, CRM as indicated
--- NOTE | 2023-09-20 13:59 | PT.OPPOC ---
Physical, Occupational & Speech Therapy At [facility] Current Diagnoses Benign paroxysmal vertigo, unspecified ear (09/20/23) Benign paroxysmal vertigo, right ear (09/20/23) Unsteadiness on feet (09/20/23) Dizziness and giddiness (09/20/23) History of falling (09/20/23) Visit Care Team Role Provider Type Martha Ponce DO Family Provider Physician Primary Care Provider Specialty: Medical Address: [address] [place] [address], [address], [address] Email: [email or web address] Ximena Serrano PA-C Attending Provider Advanced Linoleum Installer Referring Provider Specialty: Medical Wound Care Address: [address] [place] [address], [address] Email: [email or web address] Plan Of Care PT-OP-T Assessment and Plan Start: 09/20/23 13:44 Freq: Status: Active Protocol: Document 09/20/23 09:45 DCW (Rec: 09/20/23 13:58 DCW [id number]) Physical Therapy Assessment Rehab Potential Rehabilitation Potential Excellent Evaluation Complexity Number of Personal Factors/Comorbidities 0 Number of Body Systems Impaired 1-2 Clinical Presentation at Evaluation Unstable Impairments Impairments Balance,Coordination, Functional Activities, Functional Mobility,Vestibular Goals Two Impairment Pt experiences worsened symptoms with bed mobility Short Term Goal (STG) Pt to report no increase in symptoms during bed mobility for one full week. STG Duration 10/04/23 Wet Room Supervisor Goal (LTG) Pt to present with negative positional testing bilaterally LTG Duration 10/21/23 One Impairment Pt scores a 60% on the Dizziness Handicap Inventory Wet Room Supervisor Goal (LTG) Pt to demonstrate improved symptoms by reducing subjective score on the DHI by at least 30 points to 30%. LTG Duration 10/21/23 Assessment Summary Assessment During right Hammad-Hallpike test , pt complained of vertigo and demonstrated up-beating, torsional nystagmus lasting approximately 10 seconds, consistent with diagnosis of right-sided posterior canal BPPV, canalithiasis-type. Pt was treated with a right-sided modified Elizabeth maneuver. Pt complained of symptoms in the first and third position, which is normally indicative of a successful treatment. Further positional testing was negative. Pt was educated on BPPV, expectations for treatment, possible recurrence (BPPV has a ~50% recurrence rate in the five years following treatment), and post -Elizabeth restrictions. Pt to return in ~1 week for a follow -up appointment, and intermittently afterward as indicated for treatment of BPPV. Physical Therapy Plan Frequency and Duration Frequency of Treatment 1-2x/week Plan of Care Start Date 09/20/23 Plan of Care End Date 10/21/23 Therapeutic Interventions Therapeutic Interventions Balance Training,Canalithic Repositioning,Coordination Training,Home Exercise Program ,Manual Therapy,Neuromuscular Re-education,Patient/Caregiver Education,Self-Care/Home Management,Therapeutic Activities,Therapeutic Exercises,Vestibular Rehabilitation Next Visit Focus/Plan Next Note Type Treatment Note Next Visit Plan Positional testing, CRM as indicated Plan of Care Dates Plan of Care Start Date 09/20/23 Plan of Care End Date 10/21/23 Electronically Signed by: Ryan Otero, PT 09/20/23 9901 If you are in agreement with this Plan of Care, please return a signed and dated copy. I have reviewed this Plan of Care and certify that the skilled therapy services above are required to meet the patient?s needs. Physician Signature Date Printed Name and Credentials Clinical Instructor Signature Printed Name and Credentials
--- NOTE | 2023-09-25 14:10 | PT.OTN ---
Current Diagnoses Benign paroxysmal vertigo, unspecified ear (09/25/23) Benign paroxysmal vertigo, right ear (09/25/23) Unsteadiness on feet (09/25/23) Dizziness and giddiness (09/25/23) History of falling (09/25/23) Physical Therapy Treatment Note PT-OP-A Visit Information Start: 09/20/23 13:44 Freq: Status: Active Protocol: Document 09/25/23 13:45 DCW (Rec: 09/25/23 14:10 DCW [id number]) Out-Patient Physical Therapy Visit Information Visit Information Visit Type Treatment Note Visit Start Time 13:45 Visit Stop Time 14:00 Total Visit Minutes 15 Visit Number 2 Number of REPRODUCTION TECHNICIAN Visits 0 Evaluation Information Evaluation Date 09/20/23 PT-OP-B Current Condition Start: 09/20/23 13:44 Freq: Status: Active Protocol: Document 09/20/23 09:45 DCW (Rec: 09/20/23 13:58 DCW [id number]) Current Condition History of Current Condition Onset Date 2022 Current Complaints Vertigo, falls, unsteadiness on feet History of Current Condition Pt is a 78 year old female complaining of a 1.5 month history of both spontaneous and motion-induced vertigo/ imbalance. Pt reports sensation of imbalance is constantly present at a low level, but symptoms of vertigo occur with laying down, getting up, and head movement. Pt denies recent hearing changes, tinnitus, diplopia, dysarthria, discoordination, or decreased mentation/ consciousness. Pt reports symptoms are waxing/waning in nature. Was previously seen at this clinic for general dizziness in ~2017, also had a VNG at that time, which showed left vestibular hypofunction. Treatment Goals Patient/Caregiver Goals Eliminate vertigo PT-OP-C Subjective Start: 09/20/23 13:44 Freq: Status: Active Protocol: Document 09/25/23 13:45 DCW (Rec: 09/25/23 14:10 DCW [id number]) OP-PT Subjective Patient Comments Patient Comments Up until today, I was doing better. This morning, I bent over to take the trash bag out of the bin, and it came back a little. PT-OP-O Vestibular Start: 09/20/23 13:44 Freq: Status: Active Protocol: Document 09/25/23 13:45 DCW (Rec: 09/25/23 14:10 DCW [id number]) Vestibular Assessment Positional Testing Hammad-Hallpike Negative Left,Negative Right Rolling Test Negative Left,Negative Right PT-OP-Q Treatments Start: 09/20/23 13:44 Freq: Status: Active Protocol: Document 09/25/23 13:45 DCW (Rec: 09/25/23 14:10 DCW [id number]) Canalithic Repositioning BPPV Treatment Elizabeth Affected Canal(s) Right posterior canal Reps x1 Comments Modified Elizabeth PT-OP-T Assessment and Plan Start: 09/20/23 13:44 Freq: Status: Active Protocol: Document 09/25/23 13:45 DCW (Rec: 09/25/23 14:10 DCW [id number]) Physical Therapy Assessment Impairments Impairments Balance,Coordination, Functional Activities, Functional Mobility,Vestibular Goals Two Impairment Pt experiences worsened symptoms with bed mobility Short Term Goal (STG) Pt to report no increase in symptoms during bed mobility for one full week. STG Duration 10/04/23 Snf Goal (LTG) Pt to present with negative positional testing bilaterally LTG Duration 10/21/23 One Impairment Pt scores a 60% on the Dizziness Handicap Inventory Snf Goal (LTG) Pt to demonstrate improved symptoms by reducing subjective score on the DHI by at least 30 points to 30%. LTG Duration 10/21/23 Assessment Summary Assessment Positional testing negative today. However, due to pt's reports of recurrence of positional symptoms this morning, a right-sided modified Elizabeth was performed. Pt asymptomatic throughout maneuver. Will follow-up at next appointment to determine if pt requires further intervention. Physical Therapy Plan Frequency and Duration Frequency of Treatment 1-2x/week Plan of Care Start Date 09/20/23 Plan of Care End Date 10/21/23 Therapeutic Interventions Therapeutic Interventions Balance Training,Canalithic Repositioning,Coordination Training,Home Exercise Program ,Manual Therapy,Neuromuscular Re-education,Patient/Caregiver Education,Self-Care/Home Management,Therapeutic Activities,Therapeutic Exercises,Vestibular Rehabilitation Next Visit Focus/Plan Next Note Type Treatment Note Next Visit Plan Positional testing, CRM as indicated
--- NOTE | 2023-09-26 09:41 | PT.OPDS ---
Current Diagnoses Benign paroxysmal vertigo, unspecified ear (09/25/23) Benign paroxysmal vertigo, right ear (09/25/23) Unsteadiness on feet (09/25/23) Dizziness and giddiness (09/25/23) History of falling (09/25/23) Visit Care Team Role Provider Type Martha Ponce DO Family Provider Physician Primary Care Provider Specialty: Medical Address: [address] [place] [address], [address], [place], [address] Email: [email or web address] Ximena Serrano PA-C Attending Provider Advanced President & Founder Referring Provider Specialty: Medical Wound Care Address: [address] [place] [address], [place], [address] Email: [email or web address] Visit Number Visit Number 2 Discharge Summary PT-OP-B Current Condition Start: 09/20/23 13:44 Freq: Status: Active Protocol: Document 09/20/23 09:45 DCW (Rec: 09/20/23 13:58 DCW [id number]) Current Condition History of Current Condition Onset Date 2022 Current Complaints Vertigo, falls, unsteadiness on feet History of Current Condition Pt is a 78 year old female complaining of a 1.5 month history of both spontaneous and motion-induced vertigo/ imbalance. Pt reports sensation of imbalance is constantly present at a low level, but symptoms of vertigo occur with laying down, getting up, and head movement. Pt denies recent hearing changes, tinnitus, diplopia, dysarthria, discoordination, or decreased mentation/ consciousness. Pt reports symptoms are waxing/waning in nature. Was previously seen at this clinic for general dizziness in ~2018, also had a VNG at that time, which showed left vestibular hypofunction. Treatment Goals Patient/Caregiver Goals Eliminate vertigo PT-OP-C Subjective Start: 09/20/23 13:44 Freq: Status: Active Protocol: Document 09/25/23 13:45 DCW (Rec: 09/25/23 14:10 DCW [id number]) OP-PT Subjective Patient Comments Patient Comments Up until today, I was doing better. This morning, I bent over to take the trash bag out of the bin, and it came back a little. PT-OP-O Vestibular Start: 09/20/23 13:44 Freq: Status: Active Protocol: Document 09/25/23 13:45 DCW (Rec: 09/25/23 14:10 DCW [id number]) Vestibular Assessment Positional Testing Hammad-Hallpike Negative Left,Negative Right Rolling Test Negative Left,Negative Right PT-OP-T Assessment and Plan Start: 09/20/23 13:44 Freq: Status: Active Protocol: Document 09/26/23 09:40 DCW (Rec: 09/26/23 09:41 DCW [id number]) Physical Therapy Assessment Assessment Summary Assessment Pt phoned clinic to cancel remaining appointments and request discharge, reports she is no longer symptomatic. Physical Therapy Plan Discharge Physical Therapy Discharge Reasons Patient Request Next Visit Focus/Plan Next Note Type Discharge Summary
== END 2023-10-01 15:01 | disposition home or self-care (01) ==
LOC: PHYS 13:45
PROVIDERS: Family Provider Family Medicine; PCP Family Medicine; Referring Provider Physician Assistant; Visit Provider Physician Assistant
DX: H81.11 Benign paroxysmal vertigo, right ear (principal); R26.81 Unsteadiness on feet; Z91.81 History of falling; H81.10 Benign paroxysmal vertigo, unspecified ear
CPT/HCPCS: 95992; 97161

== ENCOUNTER → 2023-11-27 12:46 | Outpatient (CLI) | payer MEDICARE, OTHER, SELFPAY ==
[2023-11-27 14:10] LABS: Hemoglobin A1C% w Est Avg Glu 6.1 % (4.0-6.0)
[2023-11-27 14:23] LABS: HEMOLYSIS < 15 (0-50); Iron 65 ug/dL (37-170)
[2023-11-27 14:27] LABS: BUN Creatinine Ratio 22.4 (6-22); Blood Urea Nitrogen 17 mg/dL (7-17); Calcium 9.9 mg/dL (8.4-10.2); Carbon Dioxide 29 mmol/L (22-32); Chloride 101 mmol/L (98-107); Estimated Glomerular Filt Rate > 60 mL/min (>60); Glucose 106 mg/dL (80-110); HEMOLYSIS < 15 (0-50); Potassium 4.3 mmol/L (3.4-5.1); Sodium 136 mmol/L (137-145)
[2023-11-27 14:34] LABS: Percent Iron Saturation 26 % (15-50); Total Iron Binding Capacity 253 ug/dL (265-497); Transferrin 222 mg/dL (206-381)
[2023-11-27 14:40] LABS: Free T3, Triiodothyronine Free 3.22 pg/mL (2.77-5.27); Free T4, Direct Thyroxine 1.75 ng/dL (0.78-2.19)
[2023-11-27 14:54] LABS: Thyroid Stimulating Hormone 1.11 uIU/mL (0.47-4.68)
[2023-11-27 14:58] LABS: Ferritin 57 ng/mL (11-264)
[2023-11-27 16:15] LABS: Creatinine Urine Random 89.4 mg/dL
[2023-11-27 16:20] LABS: Microalbumi Creatinin Ratio Ur 14.5 ug/mg CR (<30); Microalbumin Urine Random 1.3 mg/dL (0-1.6)
[2023-11-27 16:31] LABS: Vitamin D 25 Hydroxy (D3) 45.8 ng/mL (30.0-100.0)
== END ==
PROVIDERS: Family Provider Family Medicine; PCP Family Medicine; Referring Provider Nurse Practitioner Family; Visit Provider Nurse Practitioner Family
DX: E10.9 Type 1 diabetes mellitus without complications (principal); E55.9 Vitamin D deficiency, unspecified; R53.83 Other fatigue; D64.9 Anemia, unspecified; E03.9 Hypothyroidism, unspecified
CPT/HCPCS: 36415; 80048; 82043; 82306; 82570; 82728; 83036; 83540; 83550; 84439; 84443; 84481

== ENCOUNTER → 2023-11-30 13:09 | Outpatient (CLI) | payer MEDICARE, OTHER, SELFPAY ==
[2023-11-30 14:22] LABS: Add Manual Diff / Slide Review NO; Basophils Absolute Auto 0 /uL (0-100); Basophils Percent Auto 0.8 % (0-2); Eosinophils Absolute Auto 100 /uL (0-450); Eosinophils Percent Auto 1.5 % (2-4); Hematocrit 33.7 % (36-46); Hemoglobin 11.4 g/dL (12.0-16.0); Lymphocytes Absolute Auto 1800 /uL (1100-4500); Lymphocytes Percent Auto 37.4 % (25-40); Mean Corpuscular HGB Conc 33.8 % (30-36); Mean Corpuscular Hemoglobin 30.4 PG (26-34); Monocytes Absolute Auto 400 /uL (0-900); Neutrophils Absolute Auto 2500 /uL (1500-7000); Neutrophils Percent Auto 52.3 % (50-75); Platelet Count 210 X10^3/uL (150-400); Red Blood Cell Count 3.74 X10^6/uL (4.0-5.2); Red Cell Distribution Width 13.8 % (11.6-14.8); White Blood Cell Count 4.8 X10^3/uL (4.5-11.0)
== END ==
PROVIDERS: Family Provider Family Medicine; PCP Family Medicine; Referring Provider Family Medicine; Visit Provider Family Medicine
DX: D50.9 Iron deficiency anemia, unspecified (principal)
CPT/HCPCS: 36415; 85025

== ENCOUNTER → 2024-02-27 13:14 | Outpatient (CLI) | payer MEDICARE, OTHER, SELFPAY ==
[2024-02-27 14:02] LABS: Hemoglobin A1C% w Est Avg Glu 6.3 % (4.0-6.0)
[2024-02-27 14:58] LABS: BUN Creatinine Ratio 25.8 (6-22); Blood Urea Nitrogen 23 mg/dL (7-17); Calcium 9.2 mg/dL (8.4-10.2); Carbon Dioxide 31 mmol/L (22-32); Chloride 100 mmol/L (98-107); Estimated Glomerular Filt Rate > 60 mL/min (>60); Glucose 186 mg/dL (80-110); HEMOLYSIS < 15 (0-50); Potassium 4.5 mmol/L (3.4-5.1); Sodium 136 mmol/L (137-145)
[2024-02-27 16:24] LABS: Creatinine Urine Random 74.59 mg/dL
[2024-02-27 16:30] LABS: Microalbumin Urine Random 1.5 mg/dL (0-1.6)
== END ==
PROVIDERS: Family Provider Family Medicine; PCP Family Medicine; Referring Provider Nurse Practitioner Family; Visit Provider Nurse Practitioner Family
DX: E10.9 Type 1 diabetes mellitus without complications (principal)
CPT/HCPCS: 36415; 80048; 82043; 82570; 83036

== ENCOUNTER → 2024-05-22 10:06 | Outpatient (CLI) | payer MEDICARE, OTHER, SELFPAY ==
[2024-05-22 11:06] LABS: Cholesterol 210 mg/dL (140-199); HDL Cholesterol 90 mg/dL (40-60); LDL Cholesterol Calculated 111 mg/dL (<100); Triglycerides 43 mg/dL (35-150)
== END ==
PROVIDERS: Family Provider Family Medicine; PCP Family Medicine; Referring Provider Nurse Practitioner Family; Visit Provider Nurse Practitioner Family
DX: E78.5 Hyperlipidemia, unspecified (principal)
CPT/HCPCS: 36415; 80061

== ENCOUNTER → 2024-06-04 10:03 | Outpatient (CLI) | payer MEDICARE, OTHER, SELFPAY ==
[2024-06-04 10:51] LABS: Hemoglobin A1C% w Est Avg Glu 5.9 % (4.0-6.0)
[2024-06-04 11:03] LABS: Alanine Aminotransferase 21 IU/L (<35); Albumin 4.1 g/dL (3.5-5.0); Albumin Globulin Ratio 1.4 (1.0-2.8); Alkaline Phosphatase 39 U/L (38-126); Aspartate Aminotransferase 27 IU/L (14-36); BUN Creatinine Ratio 28.9 (6-22); Bilirubin Total 0.4 mg/dL (0.2-1.3); Blood Urea Nitrogen 24 mg/dL (7-17); Carbon Dioxide 30 mmol/L (22-32); Chloride 100 mmol/L (98-107); Estimated Glomerular Filt Rate > 60 mL/min (>60); Glucose 111 mg/dL (80-110); HEMOLYSIS < 15 (0-50); Potassium 4.5 mmol/L (3.4-5.1); Sodium 135 mmol/L (137-145); Total Protein 7.1 g/dL (6.3-8.2)
== END ==
PROVIDERS: Family Provider Family Medicine; PCP Family Medicine; Referring Provider Nurse Practitioner Family; Visit Provider Nurse Practitioner Family
DX: E10.9 Type 1 diabetes mellitus without complications (principal); E78.5 Hyperlipidemia, unspecified
CPT/HCPCS: 36415; 80053; 83036

== ENCOUNTER 2024-08-26 14:24 | Emergency (ER) | payer MEDICARE, OTHER, SELFPAY ==
[2024-08-26] VITALS (15 sets, daily range): BP systolic 163–208; BP diastolic 67–88; PULSE 63–77; RESP 15–20; TEMP 36.9; O2SAT 93–100; BMI 18.3
--- NOTE | 2024-08-26 14:37 | DI.RAD.S_ITS ---
PROCEDURE: XR CHEST 1V INDICATIONS: STROKE EVAL TECHNIQUE: One view of the chest was acquired. COMPARISON: None. FINDINGS: Surgical changes and devices: None. Lungs and pleura: Lungs are clear. No pleural effusions or pneumothorax. Mediastinum: Mediastinal contours appear normal. Heart size is normal. Scattered atheromatous calcifications are present within the aortic arch. Bones and chest wall: No suspicious bony lesions. Overlying soft tissues appear unremarkable. IMPRESSION: No acute cardiopulmonary abnormality is seen. Aortic atherosclerosis. Dictated by: Terri Johansen M.D. on 08/26/2024 at 15:14 Approved by: Terri Johansen M.D. on 08/26/2024 at 15:15
--- NOTE | 2024-08-26 14:38 | ED_ITS ---
HPI - Neuro Symptoms/Deficit <Janet Roman MD - Last Filed: 09/02/24 18:55> General Chief Complaint: Neuro Symptoms/Deficit Stated Complaint: sent from Dr. Dalal for stroke protocol Time Seen by Provider: 08/26/24 14:28 History of Present Illness HPI Narrative: 79-year-old female with history of type 1 diabetes on insulin presents by private vehicle from her remote sensing engineer's office for evaluation of possible stroke. For the last 2 days patient has noted intermittent double vision. Patient also reports intermittent dizziness that she describes as an off-balance sensation. She states that the dizziness does happen occasionally and this is usual for her. She went to go see her remote sensing engineer today, who reported a normal retina, but did notice a 4th nerve palsy. This palsy did not seem to be ocular in nature and she was referred to the ER for evaluation of possible stroke. Related Data Home Medications Medication Instructions Recorded Confirmed insulin aspart U-100 100 unit/mL SUBCUT 01/09/23 11/26/23 subcutaneous solution (Novolog U-100 Insulin aspart) levothyroxine 75 mcg tablet 75 mcg PO DAILY 01/09/23 11/26/23 ketoconazole 2 % shampoo topical 09/05/23 11/26/23 ketoconazole 2 % topical cream applic topical 09/05/23 11/26/23 Previous Rx's Medication Instructions Recorded estradiol 0.01% (0.1 mg/gram) 0.5 g vaginal 2XW #42.5 grams 02/16/23 vaginal cream (Estrace) amitriptyline 10 mg tablet 10 mg PO DAILY #90 tabs 06/20/24 Allergies Allergy/AdvReac Type Severity Reaction Status Date / Time gluten AdvReac Mild Gastrointestinal Verified 08/26/24 14:37 Upset lactose [LACTOSE] AdvReac Mild DIARRHEA Verified 08/26/24 14:37 Patient History <Janet Roman MD - Last Filed: 09/02/24 18:55> Medical History Osteopenia Vulvodynia Type 1 DM mild nonproliferative retinopathy, macular edema, uncontrol Vulvodynia Hypothyroid After cataract, bilateral Surgical History Anesthesia Breast cyst Family History Father Mental health problem Brother Diabetes mellitus Social History Smoking Status: Never smoker Smoking Status: Never smoker Exam <Janet Roman MD - Last Filed: 09/02/24 18:55> Initial Vital Signs Initial Vital Signs: Vital Signs Temperature 98.5 F 08/26/24 14:25 Pulse Rate 75 08/26/24 14:25 Respiratory Rate 15 08/26/24 14:25 Blood Pressure 208/88 H 08/26/24 14:25 Pulse Oximetry 100 08/26/24 14:25 Oxygen Delivery Method Room Air 08/26/24 14:25 Const: Awake, alert, no acute distress, nontoxic appearing Eyes: PERRL, minor restriction L eye with oblique movement Cardiac: regular rate, regular rhythm RESP: unlabored, clear bilaterally, no wheezing Skin: Warm, Dry, intact, no rashes Neuro: AO x3, CN II-XII grossly intact, moves all extremities <Angel Luis Malloy MD - Last Filed: 08/27/24 03:25> Initial Vital Signs Initial Vital Signs: Vital Signs Temperature 98.5 F 08/26/24 14:25 Pulse Rate 75 08/26/24 14:25 Respiratory Rate 15 08/26/24 14:25 Blood Pressure 208/88 H 08/26/24 14:25 Pulse Oximetry 100 08/26/24 14:25 Oxygen Delivery Method Room Air 08/26/24 14:25 Course <Janet Roman MD - Last Filed: 09/02/24 18:55> Orders Ordered: ED Orders 08/26/24 14:36 CT angio head and neck Stat 08/26/24 14:37 CT head/brain wo con Stat Chest [XR chest 1V] Stat EKG-12 Lead Stat 08/26/24 14:40 CBC Auto Diff [Complete Blood Count AUTO DIFF] Stat CMP [Comprehensive Metabolic Panel] Stat PT [Prothrombin Time INR] Stat TSH [Thyroid Stimulating Hormone] Stat Troponin & CK Cardiac Panel Stat 08/26/24 15:52 MR head/brain wo con Stat Vital Signs Vital signs: Vital Signs - 8 hr 08/26/24 19:30 08/26/24 19:30 Pulse Rate 64 Respiratory Rate 18 Blood Pressure 178/76 H Pulse Oximetry 100 <Angel Luis Malloy MD - Last Filed: 08/27/24 03:25> Orders Ordered: ED Orders 08/26/24 14:36 CT angio head and neck Stat 08/26/24 14:37 CT head/brain wo con Stat Chest [XR chest 1V] Stat EKG-12 Lead Stat 08/26/24 14:40 CBC Auto Diff [Complete Blood Count AUTO DIFF] Stat CMP [Comprehensive Metabolic Panel] Stat PT [Prothrombin Time INR] Stat TSH [Thyroid Stimulating Hormone] Stat Troponin & CK Cardiac Panel Stat 08/26/24 15:52 MR head/brain wo con Stat Vital Signs Vital signs: Vital Signs - 8 hr 08/26/24 19:30 08/26/24 19:30 Pulse Rate 64 Respiratory Rate 18 Blood Pressure 178/76 H Pulse Oximetry 100 MDM - Neuro Symptoms/Deficit <Janet Roman MD - Last Filed: 09/02/24 18:55> Lab Data 08/26/24 14:40 08/26/24 14:40 Labs: Lab Results 08/26/24 Range/Units 14:40 WBC 3.8 L (4.5-11.0) X10^3/uL RBC 3.87 L (4.0-5.2) X10^6/uL Hgb 11.9 L (12.0-16.0) g/dL Hct 35.5 L (36-46) % MCV 91.9 (80-100) fL MCH 30.8 (26-34) PG MCHC 33.6 (30-36) % RDW 13.7 (11.6-14.8) % Plt Count 201 (150-400) X10^3/uL Neut % (Auto) 49.6 L (50-75) % Lymph % (Auto) 37.8 (25-40) % Warren % (Auto) 10.2 (3-14) % Eos % (Auto) 1.5 L (2-4) % Baso % (Auto) 0.9 (0-2) % Neut # (Auto) 1900 (9479-6985) /uL Lymph # (Auto) 1400 (1562-7230) /uL Warren # (Auto) 400 (0-900) /uL Eos # (Auto) 100 (0-450) /uL Baso # (Auto) 0 (0-100) /uL PT 10.5 (9.4-12.5) SECONDS INR 0.9 (0.9-1.3) Sodium 135 L (137-145) mmol/L Potassium 4.1 (3.4-5.1) mmol/L Chloride 101 (98-107) mmol/L Carbon Dioxide 30 (22-32) mmol/L BUN 21 H (7-17) mg/dL Creatinine 1.03 (0.52-1.04) mg/dL Estimated GFR 56 L (>60) mL/min BUN/Creatinine Ratio 20.4 (6-22) Glucose 184 H (80-110) mg/dL Calcium 9.8 (8.4-10.2) mg/dL Total Bilirubin 0.4 (0.2-1.3) mg/dL AST 38 H (14-36) IU/L ALT 28 (<35) IU/L Alkaline Phosphatase 39 (38-126) U/L Total Creatine Kinase 132 (30-135) U/L Troponin I < 0.012 (0.01-0.034) ng/mL Total Protein 8.2 (6.3-8.2) g/dL Albumin 4.5 (3.5-5.0) g/dL Globulin 3.7 (1.7-4.1) g/dL Albumin/Globulin Ratio 1.2 (1.0-2.8) TSH 1.34 (0.47-4.68) uIU/mL Imaging Data CT scan - head: Radiologist's Impression: PROCEDURE: CT HEAD/BRAIN WO CON INDICATIONS: 4TH N PALSY X 48HRS TECHNIQUE: Noncontrast 4.5 mm thick angled axial sections acquired from the foramen magnum to the vertex, with coronal and sagittal reformats. For radiation dose reduction, the following was used: automated exposure control, adjustment of mA and/or kV according to patient size. COMPARISON: [facility], MR, BRAIN (IAC) W&WO CONTRAST, 01/04/2018, 9:18. [facility], CT, CT ANGIO HEAD AND NECK, 08/26/2024, 14:44. FINDINGS: Image quality: Diagnostic. CSF spaces: Basal cisterns are patent. No extra-axial fluid collections. The ventricles are symmetric and prominent. Brain: No intracranial bleeds or masses. There is cerebral volume loss for age, with resultant ventricular and sulcal prominence. There are periventricular and deep white matter chronic small vessel ischemic changes. There is intracranial internal carotid artery atherosclerosis. Skull and face: Calvarium and visualized facial bones appear intact, without suspicious lesions. Sinuses: Visualized sinuses and mastoids are clear. IMPRESSION: No imaging explanation is found for this patient's presenting symptoms. To the limits of this noncontrast study, no findings of intracranial masses or mass effect can be seen. Prominent lateral ventricles are seen, which are larger than would be expected, given the degree of sulcal atrophy. The ventricles appear similar to 2018. Please consider normal pressure hydrocephalus. Dictated by: Justen Walsh M.D. on 08/26/2024 at 14:31 Approved by: Justen Walsh M.D. on 08/26/2024 at 14:32 CTA - brain/neck: Radiologist's Impression: PROCEDURE: CT ANGIO HEAD AND NECK INDICATIONS: 4TH N PALSY X 48HRS TECHNIQUE: After the administration of intravenous contrast, 1 mm thick sections acquired from the aortic arch through the [place] of [place]. 3-dimensional srlaioe-wtfjtbrjd-qblbfbumqo (MIP) and/or volume rendering reformats were acquired of the central intracranial vasculature and neck separately. For radiation dose reduction, the following was used: automated exposure control, adjustment of mA and/or kV according to patient size. COMPARISON: [facility], CT, CT HEAD/BRAIN WO CON, 08/26/2024, 14:44. [facility], MR, BRAIN (IAC) W&WO CONTRAST, 01/04/2018, 9:18. FINDINGS: Image quality: Limited by bolus timing, with venous contamination. There is streak artifact seen through the level of the shoulders. BRAIN: CSF spaces: Ventricles demonstrate stable, symmetric prominence. Basal cisterns are patent. No extra-axial fluid collections. Brain: No significant abnormality of the brain can be seen. No macario masses or abnormal enhancement can be seen. Skull and face: Calvarium and facial bones appear intact, without suspicious lesions. Orbits appear normal. Sinuses: Sinuses and mastoids are clear. HEAD CT ANGIOGRAPHY: Anterior circulation: Intracranial internal carotid arteries are normal in size and flow. The flow within the paired anterior cerebral arteries is normal and symmetric. The flow within the middle cerebral arteries is normal and symmetric. The anterior communicating artery is seen. No aneurysms are seen. Posterior circulation: Visualized portions of the vertebral arteries demonstrate normal caliber, and join to form a normal appearing basilar artery. There is a prominent right posterior communicating artery seen, with an accompanying diminutive right P1 segment. This is attributed to a type origin of the right posterior cerebral artery, which is considered to be a normal developmental variant of typically no clinical consequence. The flow within the posterior cerebral arteries is normal and symmetric. No aneurysms are seen. NECK CT ANGIOGRAPHY: Carotid system: The great vessels demonstrate a conventional anatomy as they arise from the aortic arch. Atherosclerotic calcification is noted. The origins of the common carotid arteries appear patent. The common carotid arteries demonstrate normal caliber and courses. The bifurcation regions are both widely patent. The internal carotid arteries demonstrate normal calibers and courses. Posterior circulation: The origins of the vertebral arteries both appear widely patent. The more superior extracranial portions of both vertebral arteries also demonstrate normal courses and calibers. They join to form a normal appearing basilar artery. Soft tissues: Visualized neck soft tissues demonstrate no suspicious abnormalities. Bones: No suspicious bony lesions. Visualized cervical spine appears normally aligned. Age-appropriate bony degenerative changes are seen. IMPRESSION: No significant intracranial arterial abnormality is seen. No significant abnormality is seen within the arteries of the neck. No findings of dissection are seen. Any quantitative measurements of stenosis were performed using NASCET criteria. Dictated by: Justen Walsh M.D. on 08/26/2024 at 14:33 Approved by: Justen Walsh M.D. on 08/26/2024 at 14:36 ECG Data Interpretation: Normal sinus rhythm at 63 beats per minute. Normal [place] MDM Narrative Medical decision making narrative: Well-appearing patient with 48 hours of blurred vision. Noted to have 4th cranial nerve palsy at ophthalmology office today. Patient was outside of tPA window. CT brain and CT angio head and neck ordered for assessment. Laboratory work is reviewed, no significant abnormalities identified. CT brain and CT angio head and neck do not show acute findings. Case discussed with the patient and , who is a former radiologist, at bedside. They are amenable to staying for MRI. Case also discussed with patient's remote sensing engineer Dr. Dalal, who recommended that if patient was discharged she should patch 1 of her eyes to help correct the palsy until prisms, which are attached to the patient's glasses, are ordered, which will be done through the ophthalmology office. 1830 - Patient to MRI at this time. Care of patient signed to Dr. Malloy at this time. 08/26/2024, when 830[place]. Sign-out from Dr. Roman. MRI brain study results pending. 79-year-old female with 2 days blurred vision, referred by Ophthalmology Dr. Dalal, suspected 4th nerve palsy, concern for possible stroke. CT head noncontrast and CTA head and neck vessels studies thus far unrevealing. MRI study ordered, to be performed. If no evidence for stroke then follow up with Ophthalmology anticipated. Assumed care. MRI brain showed no acute changes, stable appearing ventricles that are enlarged. See radiology report. Copies of CT, CTA, MRI reports given to who is a retired radiologist. Follow up with Ophthalmology as planned, and encouraged to use specialized glasses ordered by Dr. Dalal ophthalmology. Discharged home with family. Return precautions discussed <Angel Luis Malloy MD - Last Filed: 08/27/24 03:25> Lab Data Labs: Lab Results 08/26/24 Range/Units 14:40 WBC 3.8 L (4.5-11.0) X10^3/uL RBC 3.87 L (4.0-5.2) X10^6/uL Hgb 11.9 L (12.0-16.0) g/dL Hct 35.5 L (36-46) % MCV 91.9 (80-100) fL MCH 30.8 (26-34) PG MCHC 33.6 (30-36) % RDW 13.7 (11.6-14.8) % Plt Count 201 (150-400) X10^3/uL Neut % (Auto) 49.6 L (50-75) % Lymph % (Auto) 37.8 (25-40) % Warren % (Auto) 10.2 (3-14) % Eos % (Auto) 1.5 L (2-4) % Baso % (Auto) 0.9 (0-2) % Neut # (Auto) 1900 (9325-8446) /uL Lymph # (Auto) 1400 (9028-0732) /uL Warren # (Auto) 400 (0-900) /uL Eos # (Auto) 100 (0-450) /uL Baso # (Auto) 0 (0-100) /uL PT 10.5 (9.4-12.5) SECONDS INR 0.9 (0.9-1.3) Sodium 135 L (137-145) mmol/L Potassium 4.1 (3.4-5.1) mmol/L Chloride 101 (98-107) mmol/L Carbon Dioxide 30 (22-32) mmol/L BUN 21 H (7-17) mg/dL Creatinine 1.03 (0.52-1.04) mg/dL Estimated GFR 56 L (>60) mL/min BUN/Creatinine Ratio 20.4 (6-22) Glucose 184 H (80-110) mg/dL Calcium 9.8 (8.4-10.2) mg/dL Total Bilirubin 0.4 (0.2-1.3) mg/dL AST 38 H (14-36) IU/L ALT 28 (<35) IU/L Alkaline Phosphatase 39 (38-126) U/L Total Creatine Kinase 132 (30-135) U/L Troponin I < 0.012 (0.01-0.034) ng/mL Total Protein 8.2 (6.3-8.2) g/dL Albumin 4.5 (3.5-5.0) g/dL Globulin 3.7 (1.7-4.1) g/dL Albumin/Globulin Ratio 1.2 (1.0-2.8) TSH 1.34 (0.47-4.68) uIU/mL Imaging Data MRI brain: Radiologist's Impression: [address] [address] Magnetic Resonance Report Signed Patient: Ivelisse Boles MR#: [id number] : 1945 Acct:[id number] Age/Sex: 79 / F Date of Service: 08/26/24 Loc: ED Accession Number: [id number] Procedure: MR head/brain wo con Ordering Provider: Janet Roman MD PROCEDURE: MR HEAD/BRAIN WO CON INDICATIONS: 4TH NERVE PALSY TECHNIQUE: Noncontrast axial T1 spin echo, axial T2 fast spin echo, sagittal and axial FLAIR, coronal T2 fast spin echo, axial gradient echo, axial diffusion and ADC through the brain. COMPARISON: None. FINDINGS: Image quality: Excellent. CSF Spaces: Basal cisterns are patent. No extra-axial fluid collections. Stable prominence of the lateral ventricles. Brain: No intracranial masses or hemorrhage. Castellano/white matter interface is normal. Brainstem appears normal. Diffusion-weighted images demonstrate no acute infarct. No chronic ischemic insults. Normal intravascular flow voids are present. Skull and face: Calvarium has normal marrow signal. Orbits appear normal. Sinuses: Sinuses and mastoids are clear. IMPRESSION: No acute intracranial pathology. Stable prominence of the lateral ventricles. Normal pressure hydrocephalus is a consideration. Correlate with symptoms. Dictated by: Rafa Tijerina M.D. on 08/26/2024 at 18:14 Approved by: Rafa Tijerina M.D. on 08/26/2024 at 18:16 MDM Narrative Medical decision making narrative: Well-appearing patient with 48 hours of blurred vision. Noted to have 4th cranial nerve palsy at ophthalmology office today. Patient was outside of tPA window. CT brain and CT angio head and neck ordered for assessment. Laboratory work is reviewed, no significant abnormalities identified. CT brain and CT angio head and neck do not show acute findings. Case discussed with the patient and , who is a former radiologist, at bedside. They are amenable to staying for MRI. Case also discussed with patient's remote sensing engineer Dr. Dalal, who recommended that if patient was discharged she should patch 1 of her eyes to help correct the palsy until prisms, which are attached to the patient's glasses, are ordered, which will be done through the ophthalmology office. 08/26/2024, when 830 [address]. Sign-out from Dr. Roman. MRI brain study results pending. 79-year-old female with 2 days blurred vision, referred by Ophthalmology Dr. Dalal, suspected 4th nerve palsy, concern for possible stroke. CT head noncontrast and CTA head and neck vessels studies thus far unrevealing. MRI study ordered, to be performed. If no evidence for stroke then follow up with Ophthalmology anticipated. Assumed care. MRI brain showed no acute changes, stable appearing ventricles that are enlarged. See radiology report. Copies of CT, CTA, MRI reports given to who is a retired radiologist. Follow up with Ophthalmology as planned, and encouraged to use specialized glasses ordered by Dr. Dalal ophthalmology. Discharged home with family. Return precautions discussed Discharge Plan Departure Patient Disposition: Home Clinical Impression: Blurred vision, Fourth cranial nerve palsy Activity Restrictions/Additional Instructions: Blurred vision, referred from your remote sensing engineer's office for imaging to screen for stroke changes, suspected left new cranial nerve for palsy affecting your vision, in fact you were given a special prism eye aware glasses update on discharge from the eye doctor office. CT head tonight no acute changes. CT angiogram head and neck vessels no acute changes or significant narrowing noted. MRI brain showed no acute/recent/old stroke changes, stable increased size of brain ventricles noted. Follow up with your eye doctor as planned. Wear the new eyewear when it is available as directed. Return earlier to this/nearest emergency department for any change worsening symptoms or any concerns prior Prescriptions: No Action amitriptyline 10 mg tablet 10 mg PO DAILY Qty: 90 1RF insulin aspart U-100 [Novolog U-100 Insulin aspart] 100 unit/mL solution SUBCUT Patient Comments: Has insulin pump monitored by Endo @ [facility] levothyroxine 75 mcg tablet 75 mcg PO DAILY estradiol [Estrace] 0.01 % (0.1 mg/gram) cream 0.5 g vaginal 2XW Qty: 42.5 3RF Rx Instructions: 0.5gm inside the vagina and small amount on the outside every day for 2 wks and then twice a week. ketoconazole 2 % shampoo topical ketoconazole 2 % cream topical Referrals: Martah Ponce DO [Primary Care Provider] -
--- NOTE | 2024-08-26 14:48 | PC.NURSE ---
Pt complains of double vision and dizziness that began yesterday. No other neuro defecits noted. Pt is type 1 diabetic, states her blood sugars have been well controlled.
[2024-08-26 14:49] LABS: Add Manual Diff / Slide Review NO; Basophils Absolute Auto 0 /uL (0-100); Basophils Percent Auto 0.9 % (0-2); Eosinophils Absolute Auto 100 /uL (0-450); Eosinophils Percent Auto 1.5 % (2-4); Hematocrit 35.5 % (36-46); Hemoglobin 11.9 g/dL (12.0-16.0); Lymphocytes Absolute Auto 1400 /uL (1100-4500); Lymphocytes Percent Auto 37.8 % (25-40); Mean Corpuscular HGB Conc 33.6 % (30-36); Mean Corpuscular Hemoglobin 30.8 PG (26-34); Mean Corpuscular Volume 91.9 fL (80-100); Monocytes Absolute Auto 400 /uL (0-900); Monocytes Percent Auto 10.2 % (3-14); Neutrophils Absolute Auto 1900 /uL (1500-7000); Neutrophils Percent Auto 49.6 % (50-75); Platelet Count 201 X10^3/uL (150-400); Red Blood Cell Count 3.87 X10^6/uL (4.0-5.2); Red Cell Distribution Width 13.7 % (11.6-14.8); White Blood Cell Count 3.8 X10^3/uL (4.5-11.0)
--- NOTE | 2024-08-26 14:51 | EKG_ITS ---
[facility] [address] [address] Test Date: 2024-08-26 Pat Name: Ivelisse Boles Department: [facility] Room: Gender: Female [employer] Teacher: DIANA : 1945 Requested By: Order Number: [id number] Reading MD: Mike Pandey MD Measurements Intervals [place] Rate: 63 P: 65 OR: 140 QRS: -39 QRSD: 78 T: 67 QT: 434 QTc: 444 Interpretive Statements Normal sinus rhythm with sinus arrhythmia Left axis deviation NO PRIOR TRACING Electronically Signed On 08-27-2024 7:46:15 PST by Mike Pandey MD
[2024-08-26 15:00] LABS: INR 0.9 (0.9-1.3); Prothrombin Time 10.5 SECONDS (9.4-12.5)
[2024-08-26 15:25] LABS: Alanine Aminotransferase 28 IU/L (<35); Albumin 4.5 g/dL (3.5-5.0); Albumin Globulin Ratio 1.2 (1.0-2.8); Alkaline Phosphatase 39 U/L (38-126); Aspartate Aminotransferase 38 IU/L (14-36); BUN Creatinine Ratio 20.4 (6-22); Bilirubin Total 0.4 mg/dL (0.2-1.3); Blood Urea Nitrogen 21 mg/dL (7-17); Calcium 9.8 mg/dL (8.4-10.2); Carbon Dioxide 30 mmol/L (22-32); Chloride 101 mmol/L (98-107); Creatine Kinase 132 U/L (30-135); Estimated Glomerular Filt Rate 56 mL/min (>60); Globulin 3.7 g/dL (1.7-4.1); Glucose 184 mg/dL (80-110); HEMOLYSIS < 15 (0-50); Potassium 4.1 mmol/L (3.4-5.1); Sodium 135 mmol/L (137-145); Total Protein 8.2 g/dL (6.3-8.2); Troponin I < 0.012 ng/mL (0.01-0.034)
--- NOTE | 2024-08-26 15:52 | DI.MRI.S_ITS ---
PROCEDURE: MR HEAD/BRAIN WO CON INDICATIONS: 4TH NERVE PALSY TECHNIQUE: Noncontrast axial T1 spin echo, axial T2 fast spin echo, sagittal and axial FLAIR, coronal T2 fast spin echo, axial gradient echo, axial diffusion and ADC through the brain. COMPARISON: None. FINDINGS: Image quality: Excellent. CSF Spaces: Basal cisterns are patent. No extra-axial fluid collections. Stable prominence of the lateral ventricles. Brain: No intracranial masses or hemorrhage. Castellano/white matter interface is normal. Brainstem appears normal. Diffusion-weighted images demonstrate no acute infarct. No chronic ischemic insults. Normal intravascular flow voids are present. Skull and face: Calvarium has normal marrow signal. Orbits appear normal. Sinuses: Sinuses and mastoids are clear. IMPRESSION: No acute intracranial pathology. Stable prominence of the lateral ventricles. Normal pressure hydrocephalus is a consideration. Correlate with symptoms. Dictated by: Rafa Tijerina M.D. on 08/26/2024 at 18:14 Approved by: Rafa Tijerina M.D. on 08/26/2024 at 18:16
[2024-08-26 16:19] LABS: Thyroid Stimulating Hormone 1.34 uIU/mL (0.47-4.68)
== END 2024-08-26 19:58 | disposition home or self-care (01) ==
PROVIDERS: Emergency Medicine; Emergency Provider Emergency Medicine; Family Provider Family Medicine; PCP Family Medicine
DX: H49.12 Fourth [trochlear] nerve palsy, left eye (principal); H53.8 Other visual disturbances; E10.9 Type 1 diabetes mellitus without complications; R07.9 Chest pain, unspecified
CPT/HCPCS: 36415; 70450; 70496; 70498; 70551; 71045; 80053; 82550; 84443; 84484; 85025; 85610; 93005; 93010; 99284; Q9967

== ENCOUNTER → 2024-08-27 10:50 | Outpatient (CLI) | payer MEDICARE, OTHER, SELFPAY ==
[2024-08-27 12:06] LABS: Hemoglobin A1C% w Est Avg Glu 5.8 % (4.0-6.0)
== END ==
PROVIDERS: Family Provider Family Medicine; PCP Family Medicine; Referring Provider Nurse Practitioner Family; Visit Provider Nurse Practitioner Family
DX: E10.9 Type 1 diabetes mellitus without complications (principal)
CPT/HCPCS: 36415; 83036

== ENCOUNTER 2024-10-08 09:26 | Outpatient (RCR) | payer MEDICARE, OTHER, SELFPAY ==
--- NOTE | 2024-10-08 10:30 | PT.OIE ---
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, unspecified eye (10/08/24) Benign paroxysmal vertigo, bilateral (10/08/24) Dizziness and giddiness (10/08/24) History of falling (10/08/24) Past Medical History (Last Reviewed 08/26/24 @ 17:34 by Janet Roman MD) After cataract, bilateral Hypothyroid Osteopenia Type 1 DM mild nonproliferative retinopathy, macular edema, uncontrol Vulvodynia Vulvodynia Past Surgical History (Last Reviewed 08/26/24 @ 17:34 by Janet Roman MD) Anesthesia Breast cyst Visit Care Team Role Provider Type Martha Ponce DO Attending Provider Physician Family Provider Primary Care Provider Referring Provider Specialty: Medical Address: [address] [place] [address], [address], [place], [address] Email: [email or web address] Physical Therapy Initial Evaluation PT-OP-A Visit Information Start: 10/08/24 15:54 Freq: Status: Active Protocol: Document 10/08/24 09:45 DCW (Rec: 10/08/24 16:16 DCW [id number]) Out-Patient Physical Therapy Visit Information Visit Information Visit Type Initial Evaluation Visit Start Time 09:45 Visit Stop Time 10:30 Visit Number 1 Number of WIRE MACHINE CUTTER Visits 0 Evaluation Information Evaluation Date 10/08/24 PT-OP-B Current Condition Start: 10/08/24 15:54 Freq: Status: Active Protocol: Document 10/08/24 09:45 DCW (Rec: 10/08/24 16:16 DCW [id number]) Current Condition History of Current Condition Onset Date 08/25/24 Current Complaints Imbalance, dizziness, diplopia History of Current Condition Pt is a 79 year old female presenting to skilled therapy with a 1.5 month history of dizziness and double vision. Pt notes that she woke up on 08/25/24, felt fairly normal, but noticed some worsening vision problems, starting with the inability to thread the needle on her sewing machine, and then went to talk to her , and noticed she had double vision. Was seen at her general assignment reporter's office the next day, who noted a 4th CN palsy, and instructed pt to go to the ED for possible CVA. CVA workup performed, and imaging was unremarkable. Since this time, has experienced vague complaints of dizziness, denies rotational vertigo. Describes it as more of a light-headed imbalance. Notes increased symptoms with increased visual input. Has received prism lenses, which have helped with the double vision, but continues to feel very off balance. Prior Treatments and Tests Previously treated at this facility for BPPV PT-OP-C Subjective Start: 10/08/24 15:54 Freq: Status: Active Protocol: Document 10/08/24 09:45 DCW (Rec: 10/08/24 16:16 DCW [id number]) Patient Questionnaires Dizziness Handicap Inventory DHI Score 72% DHI Functional Impairment 60 to 79% Impaired (Score 60- 79) PT-OP-O Vestibular Start: 10/08/24 15:54 Freq: Status: Active Protocol: Document 10/08/24 09:45 DCW (Rec: 10/08/24 16:16 DCW [id number]) Vestibular Assessment Auditory Tests Castillo Test Lateralizes left Rinne Test Negative Air Conduction Results Equal Visual Testing Smooth Pursuits Horizontal WNL Smooth Pursuits Vertical WNL Saccades Horizontal WNL Heave Test Positive Bilateral Thrust Head Positive Bilateral Cover/Uncover Test WNL DVA (Line Degradation) 6 Positional Testing Hammad-Hallpike Negative Left,Negative Right Comments Vestibular Comments Suleiman String: WNL, however after repeated attempts transitioning between beads, left eye appears to fatigue and movement slows PT-OP-Q Treatments Start: 10/08/24 15:54 Freq: Status: Active Protocol: Document 10/08/24 09:45 DCW (Rec: 10/08/24 16:16 DCW [id number]) Neuro Re-Education Treatment Vestibular Rehabilitation Corrective Saccades Details Eyes, then head Distance From Target arm's length Speed as tolerated Position seated X2 Viewing Details Target and head moving in opposite directions Distance From Target arm's length Speed as tolerated Position seated X1 Viewing Details Static target with head turns Distance From Target arm's length Speed as tolerated Position seated VOR Retraining Details Target and head moving together Distance From Target arm's length Speed as tolerated Position seated PT-OP-T Assessment and Plan Start: 10/08/24 15:54 Freq: Status: Active Protocol: Document 10/08/24 09:45 DCW (Rec: 10/09/24 09:44 DCW [id number]) Physical Therapy Assessment Rehab Potential Rehabilitation Potential Good Evaluation Complexity Number of Personal Factors/Comorbidities 3 or More Number of Body Systems Impaired 4 or More Clinical Presentation at Evaluation Unstable Impairments Impairments Activity Tolerance,Balance, Functional Activities, Functional Mobility,Vestibular ,Visual Motor Goals Two Impairment DVA testing shows six line degradation Residential Goal (LTG) Pt to improve DVA testing to at worst a three line degradation in order to demonstrate improvement with VOR retraining LTG Duration 12/06/24 One Impairment Pt does not have an appropriate home exercise program Short Term Goal (STG) Pt to be independent and compliant with an appropriate HEP STG Duration 11/08/24 Assessment Summary Assessment Pt presents with signs and symptoms consistent with prior diagnosis of CN IV nerve palsy, which is causing diplopia, gait instability, visual motion sensitivity, and feelings of a light-headed dizziness. Pt demonstrates WNL oculomotor movement initially, however with repeated activity, left eye begins to lag behind with convergence, resulting in increased symptoms. Pt does note that symptoms have improved over time since they initially began, but still struggles with diplopia when not wearing her prism lenses. Pt was very limited in her ability to perform oculomotor and VOR exercises, greatly increased fatigue. Pt may benefit from skilled therapeutic intervention focusing on balance and oculomotor function, however if she does not progress as expected, may benefit from referral to neuro- ophthamologist. Physical Therapy Plan Frequency and Duration Frequency of Treatment 2x/Week Plan of Care Start Date 10/08/24 Plan of Care End Date 12/06/24 Therapeutic Interventions Therapeutic Interventions Balance Training,Coordination Training,Home Exercise Program ,Manual Therapy,Neuromuscular Re-education,Patient/Caregiver Education,Self-Care/Home Management,Therapeutic Activities,Therapeutic Exercises,Vestibular Rehabilitation Next Visit Focus/Plan Next Note Type Treatment Note Next Visit Plan Oculomotor exercises, balance training, VOR retraining
--- NOTE | 2024-10-08 10:30 | PT.OPPOC ---
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 Plan Of Care PT-OP-B Current Condition Start: 10/08/24 15:54 Freq: Status: Active Protocol: Document 10/08/24 09:45 DCW (Rec: 10/08/24 16:16 DCW [id number]) Current Condition History of Current Condition Onset Date 08/25/24 Current Complaints Imbalance, dizziness, diplopia History of Current Condition Pt is a 79 year old female presenting to skilled therapy with a 1.5 month history of dizziness and double vision. Pt notes that she woke up on 08/25/24, felt fairly normal, but noticed some worsening vision problems, starting with the inability to thread the needle on her sewing machine, and then went to talk to her , and noticed she had double vision. Was seen at her customer account executive's office the next day, who noted a 4th CN palsy, and instructed pt to go to the ED for possible CVA. CVA workup performed, and imaging was unremarkable. Since this time, has experienced vague complaints of dizziness, denies rotational vertigo. Describes it as more of a light-headed imbalance. Notes increased symptoms with increased visual input. Has received prism lenses, which have helped with the double vision, but continues to feel very off balance. Prior Treatments and Tests Previously treated at this facility for BPPV PT-OP-T Assessment and Plan Start: 10/08/24 15:54 Freq: Status: Active Protocol: Document 10/08/24 09:45 DCW (Rec: 10/09/24 09:44 DCW [id number]) Physical Therapy Assessment Rehab Potential Rehabilitation Potential Good Evaluation Complexity Number of Personal Factors/Comorbidities 3 or More Number of Body Systems Impaired 4 or More Clinical Presentation at Evaluation Unstable Impairments Impairments Activity Tolerance,Balance, Functional Activities, Functional Mobility,Vestibular ,Visual Motor Goals Two Impairment DVA testing shows six line degradation Snf Goal (LTG) Pt to improve DVA testing to at worst a three line degradation in order to demonstrate improvement with VOR retraining LTG Duration 12/06/24 One Impairment Pt does not have an appropriate home exercise program Short Term Goal (STG) Pt to be independent and compliant with an appropriate HEP STG Duration 11/08/24 Assessment Summary Assessment Pt presents with signs and symptoms consistent with prior diagnosis of CN IV nerve palsy, which is causing diplopia, gait instability, visual motion sensitivity, and feelings of a light-headed dizziness. Pt demonstrates WNL oculomotor movement initially, however with repeated activity, left eye begins to lag behind with convergence, resulting in increased symptoms. Pt does note that symptoms have improved over time since they initially began, but still struggles with diplopia when not wearing her prism lenses. Pt was very limited in her ability to perform oculomotor and VOR exercises, greatly increased fatigue. Pt may benefit from skilled therapeutic intervention focusing on balance and oculomotor function, however if she does not progress as expected, may benefit from referral to neuro- ophthamologist. Physical Therapy Plan Frequency and Duration Frequency of Treatment 2x/Week Plan of Care Start Date 10/08/24 Plan of Care End Date 12/06/24 Therapeutic Interventions Therapeutic Interventions Balance Training,Coordination Training,Home Exercise Program ,Manual Therapy,Neuromuscular Re-education,Patient/Caregiver Education,Self-Care/Home Management,Therapeutic Activities,Therapeutic Exercises,Vestibular Rehabilitation Next Visit Focus/Plan Next Note Type Treatment Note Next Visit Plan Oculomotor exercises, balance training, VOR retraining Plan of Care Dates Plan of Care Start Date 10/08/24 Plan of Care End Date 12/06/24 Electronically Signed by: Ryan Otero, PT 10/09/24 0945 If you are in agreement with this Plan of Care, please return a signed and dated copy. I have reviewed this Plan of Care and certify that the skilled therapy services above are required to meet the patient?s needs. Physician Signature Date Printed Name and Credentials Clinical Instructor Signature Printed Name and Credentials
--- NOTE | 2025-04-13 11:47 | PT.OPDS ---
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 Visit Number Visit Number 1 Discharge Summary PT-OP-B Current Condition Start: 10/08/24 15:54 Freq: Status: Active Protocol: Document 10/08/24 09:45 DCW (Rec: 10/08/24 16:16 DCW [id number]) Current Condition History of Current Condition Onset Date 08/25/24 Current Complaints Imbalance, dizziness, diplopia History of Current Pt is a 79 year old female presenting to skilled Condition therapy with a 1.5 month history of dizziness and double vision. Pt notes that she woke up on 08/25/24, felt fairly normal, but noticed some worsening vision problems, starting with the inability to thread the needle on her sewing machine, and then went to talk to her , and noticed she had double vision. Was seen at her community mental health worker's office the next day, who noted a 4th CN palsy, and instructed pt to go to the ED for possible CVA. CVA workup performed, and imaging was unremarkable. Since this time, has experienced vague complaints of dizziness, denies rotational vertigo. Describes it as more of a light-headed imbalance. Notes increased symptoms with increased visual input. Has received prism lenses, which have helped with the double vision, but continues to feel very off balance. Prior Treatments and Previously treated at this facility for BPPV Tests PT-OP-C Subjective Start: 10/08/24 15:54 Freq: Status: Active Protocol: Document 10/08/24 09:45 DCW (Rec: 10/08/24 16:16 DCW [id number]) Patient Questionnaires Dizziness Handicap Inventory DHI Score 72% DHI Functional 60 to 79% Impaired (Score 60-79) Impairment PT-OP-O Vestibular Start: 10/08/24 15:54 Freq: Status: Active Protocol: Document 10/08/24 09:45 DCW (Rec: 10/08/24 16:16 [facility] [id number]) Vestibular Assessment Auditory Tests Castillo Test Lateralizes left Rinne Test Negative Air Conduction Equal Results Visual Testing Smooth Pursuits WNL Horizontal Smooth Pursuits WNL Vertical Saccades Horizontal WNL Heave Test Positive Bilateral Thrust Head Positive Bilateral Cover/Uncover Test WNL DVA (Line 6 Degradation) Positional Testing Hammad-Hallpike Negative Left,Negative Right Comments Vestibular Comments Suleiman String: WNL, however after repeated attempts transitioning between beads, left eye appears to fatigue and movement slows PT-OP-T Assessment and Plan Start: 10/08/24 15:54 Freq: Status: Active Protocol: Document 04/13/25 11:46 DC (Rec: 04/13/25 11:46 [facility] [id number]) Physical Therapy Assessment Assessment Summary Assessment Pt is no longer attending physical therapy. POC has , pt has not been seen in more than six months. Pt will be discharged from skilled therapy at this time . Physical Therapy Plan Discharge Physical Therapy Discharge Reasons No Longer Attending PT
== END 2025-04-13 14:47 | disposition home or self-care (01) ==
LOC: PHYS 09:26
PROVIDERS: Family Provider Family Medicine; PCP Family Medicine; Referring Provider Family Medicine; Visit Provider Family Medicine
DX: H49.10 Fourth [trochlear] nerve palsy, unspecified eye (principal); Z91.81 History of falling; H81.13 Benign paroxysmal vertigo, bilateral
CPT/HCPCS: 97112; 97163

== ENCOUNTER → 2024-11-24 15:10 | Outpatient (CLI) | payer MEDICARE, OTHER, SELFPAY ==
[2024-11-24 16:21] LABS: Hemoglobin A1C% w Est Avg Glu 6.1 % (4.0-6.0)
== END ==
PROVIDERS: Family Provider Family Medicine; PCP Family Medicine; Referring Provider Nurse Practitioner Family; Visit Provider Nurse Practitioner Family
DX: E10.649 Type 1 diabetes mellitus with hypoglycemia without coma (principal)
CPT/HCPCS: 36415; 83036

== ENCOUNTER → 2024-12-23 14:38 | Outpatient (CLI) | payer MEDICARE, OTHER, SELFPAY ==
--- NOTE | 2025-01-15 08:04 | DIAB.INIT ---
Initial Diabetes Education Assessment Name: Ivelisse Boles Date: 12/23/24 Time: 784-143 Dx: Type I Diabetes Provider: Roasrio Ivelisse presents for initial DM visit. Using TSlim and Dexcom system. IC: 1:12 ISF: 1:65 Target 110mg/dl TDD: 18.29u Not using sleep schedule in pump. Interested in support group. Reports FH of T1DM with her brother. Last November had CIGARETTE EXAMINER endo visit with [facility]. Endorses a lot of lows and feels her BG are up/down frequently. Daughter in law is a functional medicine practitioner and RD She is currently dairy and gluten free. Endorses diarrhea with gluten. 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 Provided appropriate educational handouts. Discussed the following topics: Completed intake assessment. Discussed barriers to care. Review of BG goals and trends Discussed potential changes to pump settings: using sleep settings, adjusting ISF down to reduce lows Local support group Created SMART goals for patient self-care and success. Goals: Consider ISF change from 65 to 60 to weaken correction Check out local support group this month Follow-up: [facility] follow-up in 3-4 weeks Joya Rivera RDN, ANEL Certified Diabetes Care and Protein Purification Scientist P: [phone] Thank you for this referral
== END ==
LOC: DIET 14:39
PROVIDERS: Family Provider Family Medicine; PCP Family Medicine; Referring Provider Family Medicine
DX: E10.9 Type 1 diabetes mellitus without complications (principal); Z71.3 Dietary counseling and surveillance; Z96.41 Presence of insulin pump (external) (internal)
CPT/HCPCS: G0108

== ENCOUNTER → 2025-01-20 15:00 | Outpatient (CLI) | payer MEDICARE, OTHER, SELFPAY ==
[2025-01-20 17:50] LABS: Appearance Urine UA CLEAR; Bilirubin Urine UA NEGATIVE (NEGATIVE); Color Urine UA YELLOW; Glucose Urine UA 1+ g/dL (Negative); Ketones Urine UA NEGATIVE (NEGATIVE); Leukocyte Esterase Urine UA NEGATIVE (NEGATIVE); Nitrite Urine UA POSITIVE (Negative); Occult Blood Urine UA NEGATIVE (Negative); Protein Urine UA NEGATIVE (Negative); Urobilinogen Urine UA 0.2 E.U./dL (0.2); pH Urine UA 6.5 (4.5-8.0)
[2025-01-20 17:55] LABS: Bacteria Urine Many (>30); Culture Indicated Urine Specimen Cultured; RBC Urine 0-1/HPF (0-5/HPF); Squamous Epithelial Cell Urine 0-1 /HPF (0-5/HPF); Urine Volume 10mL (spun); WBC Urine 1-5/HPF (0-5/HPF)
== END ==
LOC: LAB 15:01
PROVIDERS: Family Provider Family Medicine; PCP Family Medicine; Visit Provider Obstetrics & Gynecology Gynecology
DX: N95.2 Postmenopausal atrophic vaginitis (principal); N39.41 Urge incontinence
CPT/HCPCS: 81001; 87077; 87086

== ENCOUNTER → 2025-01-22 14:00 | Outpatient (CLI) | payer MEDICARE, OTHER, SELFPAY ==
--- NOTE | 2025-01-29 17:15 | DIAB.FU ---
Addendum entered by Joya Rievra 02/04/25 09:54: 02/04/25 phone call: last week changed ISF to reduce insulin given by pump for correction. Seems to have helped. Less lows r/t correction. Some lows with over bolusing. Wants to stay with Tandem pump at this time, but still considering Medtronic switch. Will phone check in x 1 week and 1:1 in two weeks. Original Note: Follow-up Diabetes Education Assessment Name: Ivelisse Boles Date: 01/22/25 Time: 2-3p Dx: Type I Diabetes Provider: Rosario Ivelisse presents for follow-up DM visit Using TSlim and Dexcom system. Open to trying a pump that might require less interaction. Continues to have lows, mostly before dinner. Is having less lows overnight with sleep mode on Tslim. Discussed ISF changes since lows tend to happen with pump corrections. IC: 1:12 ISF: 1:65 Target 110mg/dl TDD: 18.29u Anthropometrics: Ht: 64.5 Wt: 113# 09/2024 Self-Monitoring Blood Glucose: More lows since last visit, mostly before dinner. Reduced lows over night. 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 Provided appropriate educational handouts. Discussed the following topics: Review of ISF adjustments Potential pump options with less interactions Created SMART goals for patient self-care and success. Goals: Consider ISF change - met and continue Check out local support group this month- met Follow-up: [facility] follow-up in 3-4 weeks. After this visit we discussed over the phone an ISF of 1:67 since lows increased since last visit. Will follow-up weekly or more over the phone until lows are less frequently with ISF adjustment. Provided [employer] her contact info as requested to discss 780g further. Joya Rivera RDN, ANEL Certified Diabetes Care and Locksmith Helper P: [phone] Thank you for this referral
== END ==
PROVIDERS: Family Provider Family Medicine; PCP Family Medicine; Referring Provider Family Medicine
DX: E10.9 Type 1 diabetes mellitus without complications (principal); Z71.3 Dietary counseling and surveillance; Z96.41 Presence of insulin pump (external) (internal)
CPT/HCPCS: G0108

== ENCOUNTER → 2025-02-18 14:59 | Outpatient (CLI) | payer MEDICARE, OTHER, SELFPAY ==
--- NOTE | 2025-03-06 10:48 | DIAB.MNT ---
Initial Diabetes Medical Nutrition Therapy Assessment Name: Ivelisse Boles Date: 02/18/25 Time: 951-012p Dx: Type I Diabetes Provider: Rosario Ivelisse presents for follow-up DM visit Using TSlim and Dexcom system. Open to trying a pump that might require less interaction, but would like to wait until a later date to consdier a switch. Lows seem to have improved. Most lows more recently seem to bolusing behaviors. Today we reviewed carb contents of foods a little more detailed. Reports choosing gluten and lactose free foods. States she has a sensitivity to both. More tortilla chips lately but tries to limit CHO foods in general. Focusing more on salads recently. Avoids mashed potatoes, but will eat potato salad. States she is currently happy with the pump settings. Needs review of ISF vs IC ratio settings per report. IC: 1:12 ISF: 1:67 Target 120mg/dl Anthropometrics: Ht: 64.5 Wt: 113# 09/2024 Self-Monitoring Blood Glucose: Reduced lows and improved time in range in general since last visit with current settings. Would benefit from continued reduced lows, but in general TIR is in goal. 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 Provided appropriate educational handouts. Discussed the following topics: Review of ISF adjustments Review of CHO counting and provided resources Encouraged reduced lows per week ISF vs IC ratio Created SMART goals for patient self-care and success. Goals: Consider ISF change - met and continue Check out local support group this month- met Review carb counting resource- new Follow-up: [facility] follow-up offered 3-4 weeks. Ivelisse would like remote check-in q couple weeks and a 1:1 f/u in 2 months. Joya Rivera RDN, [facility] Certified Diabetes Care and Scuba Diving Instructor P: [phone] Thank you for this referral
== END ==
PROVIDERS: Family Provider Family Medicine; PCP Family Medicine; Referring Provider Family Medicine
DX: E10.9 Type 1 diabetes mellitus without complications (principal); Z96.41 Presence of insulin pump (external) (internal); Z71.3 Dietary counseling and surveillance
CPT/HCPCS: 97802

== ENCOUNTER → 2025-02-24 09:42 | Outpatient (CLI) | payer MEDICARE, OTHER, SELFPAY ==
[2025-02-24 10:47] LABS: Hemoglobin A1C% w Est Avg Glu 5.6 % (4.0-6.0)
[2025-02-24 10:50] LABS: BUN Creatinine Ratio 20.8 (6-22); Blood Urea Nitrogen 16 mg/dL (7-17); Calcium 9.7 mg/dL (8.4-10.2); Carbon Dioxide 29 mmol/L (22-32); Chloride 100 mmol/L (98-107); Estimated Glomerular Filt Rate > 60 mL/min (>60); Glucose 97 mg/dL (70-99); HEMOLYSIS < 15 (0-50); Potassium 4.4 mmol/L (3.4-5.1); Sodium 137 mmol/L (137-145)
[2025-02-24 11:08] LABS: Free T4, Direct Thyroxine 1.73 ng/dL (0.78-2.19)
[2025-02-24 11:21] LABS: Thyroid Stimulating Hormone 0.708 uIU/mL (0.47-4.68)
[2025-02-24 11:24] LABS: Creatinine Urine Random 57.02 mg/dL
[2025-02-25 20:11] LABS: Microalbumin Urine Random 1.4 mg/dL (0-1.6)
== END ==
PROVIDERS: Family Provider Family Medicine; PCP Family Medicine; Referring Provider Nurse Practitioner Family; Visit Provider Nurse Practitioner Family
DX: E10.649 Type 1 diabetes mellitus with hypoglycemia without coma (principal); E03.9 Hypothyroidism, unspecified
CPT/HCPCS: 36415; 80048; 82043; 82570; 83036; 84156; 84439; 84443

== ENCOUNTER → 2025-04-21 14:45 | Outpatient (CLI) | payer MEDICARE, OTHER, SELFPAY ==
--- NOTE | 2025-05-22 16:37 | DIAB.MNTFU ---
Follow-up Diabetes Medical Nutrition Therapy Assessment Name: Ivelisse Boles Date: 05/22/25 Time: 305-335p Dx: Type I Diabetes Provider: Rosario Ivelisse presents for follow-up DM visit Using TSlim and Dexcom system. Open to trying a pump that might require less interaction, but would like to wait until a later date to consider a switch. using thighs for sites due to scar tissue. Reports October her TSlim warrantee is up and would like to consider a pump switch. Feeling dizzy and unwell at times with lows, OJ helps. Does worry about increase in elevations. Endorses bolusing pre meal most times. May need brief review of carb counting. Endorses lows with walking and carrying snack with her. Encouraged using activity mode to reduce this. RD did consult Tandem parent trainer after this visit and provided some insight on setting changes for pt over the phone. IC: 1:12--- 14 ISF: 1:67 Target 120mg/dl Anthropometrics: Ht: 64.5 Wt: 113# 09/2024 Self-Monitoring Blood Glucose: In goal per ADA with some increase in lows and highs since last visit. 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 Provided appropriate educational handouts. Discussed the following topics: Carb counting review CGM options Pump options Discussion with pump parent trainer for recs on settings ISF vs IC ratio Activity mode for walks and types of snacks to carry Created SMART goals for patient self-care and success. Goals: Consider ISF change - met and continue Check out local support group this month- met Review carb counting resource- in progress Follow-up: [facility] follow-up in 2 weeks over phone and 2 month in person per pt req. Joya Rivera RDN, AN[facility] Certified Diabetes Care and Machine Feeder P: [phone] Thank you for this referral
== END ==
LOC: DIET 14:47
PROVIDERS: Family Provider Family Medicine; PCP Family Medicine; Referring Provider Family Medicine
DX: E10.9 Type 1 diabetes mellitus without complications (principal); Z71.3 Dietary counseling and surveillance; Z96.41 Presence of insulin pump (external) (internal)
CPT/HCPCS: 97803

== ENCOUNTER → 2025-05-26 10:44 | Outpatient (CLI) | payer MEDICARE, OTHER, SELFPAY ==
[2025-05-26 11:52] LABS: Hemoglobin A1C% w Est Avg Glu 5.8 % (4.0-6.0)
== END ==
PROVIDERS: Family Provider Family Medicine; PCP Family Medicine; Referring Provider Nurse Practitioner Family; Visit Provider Nurse Practitioner Family
DX: E10.649 Type 1 diabetes mellitus with hypoglycemia without coma (principal)
CPT/HCPCS: 36415; 83036

== ENCOUNTER → 2025-06-30 13:14 | Outpatient (CLI) | payer MEDICARE, OTHER, SELFPAY ==
--- NOTE | 2025-07-23 16:45 | DIAB.MNTFU ---
Follow-up Diabetes Medical Nutrition Therapy Assessment Name: Ivelisse Boles Date: 06/30/25 Time: 130-220p Dx: Type I Diabetes Provider: Rosario Ivelisse presents for follow-up DM visit Using TSlim and Dexcom system. Open to trying a pump that might require less interaction, but would like to wait until a later date to consider a switch. Would like to chat with someone that has made this switch in the past. RD has helped connect her with another insulin pump user that has made a switch. Noticed bolusing was not enough when she eats out, ie [employer] food. sees Nisha 08/31. Last visit endo basically told Ivelisse to not worry and that she is doing well, per report. BG generally are in TIR goal, though still having pretty frequent lows. IC: 1:12--- 14 --- 12 ISF: 1:67 Target 120mg/dl Anthropometrics: Ht: 64.5 Wt: 113# 09/2024 Self-Monitoring Blood Glucose: In goal per ADA with similar lows and highs since last visit. 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 Provided appropriate educational handouts. Discussed the following topics: Bolusing behaviors and carb content Eating out bolusing Differences between pumps and answered any pt questions related Activity mode for walks and types of snacks to carry Created SMART goals for patient self-care and success. Goals: Review carb counting resource- not met Increase bolusing for eating out- new Discuss pump types with contact- new Follow-up: [facility] follow-up next year if pt decides to switch pumps per pt req. Joya Rivera RDN, [facility] Certified Diabetes Care and Illustrator Set P: [phone] Thank you for this referral
== END ==
PROVIDERS: Family Provider Family Medicine; PCP Family Medicine; Referring Provider Family Medicine
DX: E10.9 Type 1 diabetes mellitus without complications (principal); Z96.41 Presence of insulin pump (external) (internal); Z71.3 Dietary counseling and surveillance
CPT/HCPCS: 97803

== ENCOUNTER → 2025-08-20 15:38 | Outpatient (CLI) | payer MEDICARE, OTHER, SELFPAY ==
[2025-08-20 17:26] LABS: Hemoglobin A1C% w Est Avg Glu 5.4 % (4.0-6.0)
[2025-08-20 18:13] LABS: Blood Urea Nitrogen 19 mg/dL (7-17); Calcium 9.6 mg/dL (8.4-10.2); Carbon Dioxide 29 mmol/L (22-32); Chloride 101 mmol/L (98-107); Estimated Glomerular Filt Rate > 60 mL/min (>60); Glucose 104 mg/dL (70-99); HEMOLYSIS < 15 (0-50); Potassium 4.1 mmol/L (3.4-5.1); Sodium 137 mmol/L (137-145)
[2025-08-20 18:44] LABS: TSH w/ Reflex to FT4 1.07 uIU/mL (0.47-4.68)
== END ==
PROVIDERS: Family Provider Family Medicine; PCP Family Medicine; Referring Provider Nurse Practitioner Family; Visit Provider Nurse Practitioner Family
DX: E10.649 Type 1 diabetes mellitus with hypoglycemia without coma (principal)
CPT/HCPCS: 36415; 80048; 83036; 84443

== ENCOUNTER → 2025-08-21 15:10 | Outpatient (CLI) | payer MEDICARE, OTHER, SELFPAY ==
[2025-08-21 16:01] LABS: Microalbumi Creatinin Ratio Ur 11.0 ug/mg CR (<30)
== END ==
PROVIDERS: Family Provider Family Medicine; PCP Family Medicine; Referring Provider Family Medicine; Visit Provider Nurse Practitioner Family
DX: E10.649 Type 1 diabetes mellitus with hypoglycemia without coma (principal)
CPT/HCPCS: 82043; 82570